=== PATIENT | male | born 1980 | race African-American/Black ===

== ENCOUNTER 2016-04-25 14:12 | Inpatient (IN) | payer BC ==
[2016-04-25] MEDS ORDERED: SODIUM CHLORIDE 1,000 ML IV STA (15:01)
[2016-04-25] MEDS ORDERED: ACETAMINOPHEN 325 MG TABLET (FP) PO ONE (15:04)
[2016-04-25] MEDS ORDERED: PIPERACILLIN/TAZOBACTAM 4.5 GM VIAL IVPB ONE ×2 (15:07→15:25)
[2016-04-25] MEDS ORDERED: VANCOMYCIN 1,500 MG in DEXTROSE 5%-WATER - 250 ML IVPB ONE (15:07)
[2016-04-25] MEDS ORDERED: ACETAMINOPHEN 325 MG TABLET (FP) ONE (15:25)
[2016-04-25 15:53] LABS: BASOPHIL 1.8 % (0-2.0); EOSINOPHIL 0.2 % (0-4.5); MCH 27.9 pg (25.7-33.7); MCHC 33.3 g/dl (32.0-35.9); MEAN CELL VOLUME 83.6 fl (80-96); MEAN PLT VOLUME 8.1 fl (7.5-11.1); PLATELET COUNT 395 K/MM3 (134-434); RDW 14.1 % (11.9-15.9); WHITE BLOOD COUNT 18.5 K/mm3 (4.0-10.0)
[2016-04-25] MEDS ORDERED: VANCOMYCIN 500 MG VIAL (RESTRICTED TO ID ONLY) ONE (15:58)
[2016-04-25] MEDS ORDERED: VANCOMYCIN 1,000 MG VIAL (RESTRICTED TO ID ONLY) ONE (15:58)
[2016-04-25 16:02] LABS: ACTIVATED PTT 35.3 SECONDS (24.0-38.9)
[2016-04-25 16:04] LABS: ALBUMIN 3.9 g/dl (3.5-5.0); ALK PHOS 76 U/L (32-92); ANION GAP 9 (8-16); BILIRUBIN,TOTAL 0.7 mg/dl (0.2-1.0); CO2 23 mmol/L (22-28); CREATININE 1.1 mg/dl (0.6-1.3); GLUCOSE,RANDOM 91 mg/dl (74-106); SGOT/AST 20 U/L (10-42); SGPT/ALT 25 U/L (10-40); TOT PROT 7.6 g/dl (6.4-8.3)
[2016-04-25 16:07] LABS: INR 1.3 (0.82-1.09); PROTHROMBIN TIME (PATIENT) 14.5 SEC (10.2-13.0)
--- NOTE | 2016-04-25 16:15 | PDOC ---
History of Present Illness - General History Source: Patient Exam Limitations: No Limitations - History of Present Illness Initial Comments: 04/25/16 16:15 The patient is a 35 year old male, with significant past medical history of multiple episodes of cellulitis (most recently in 2011) and obesity, who presents today complaining of 1 day of right groin pain, subjective fever, SOB, and 3 days of runny nose and a dry throat. The patient states that the groin and leg pain started this morning. The pain radiates from the groin, down the RLE, to the right lower ankle. The pain is exacerbated upon movement, touch/ pressure and is alleviated secondary to laying down. He states that this pain is similar to the symptoms experienced with cellulitis in the past. The patient states that he became short of breath this morning while sitting down. He reports a subjective fever and chills also starting this morning. He notes a runny nose and dry throat over the past couple of days and has taken nyquil for these symptoms. No cough. No abdominal pain, nausea, vomiting. Denies recent strenuous activity or recent trauma. Allergies: none reported Social Hx: No tobacco use. PCP- Dr. Jenise Squires ([phone]) 04/25/16 16:21 <Zohra Rodriguez - Last Filed: 04/25/16 17:28> <Jerry Humphrey - Last Filed: 04/25/16 17:43> - General Chief Complaint: Pain, Acute Stated Complaint: RIGHT LEG PAIN Time Seen by Provider: 04/25/16 14:22 Past History <Zohra Rodriguez - Last Filed: 04/25/16 17:28> - Past Medical History Other medical history: DENIES - Psycho/Social/Smoking Cessation Hx Anxiety: No Suicidal Ideation: No Smoking Status: No Smoking History: Never smoked Years of Tobacco Use: 0 Number of Cigarettes Smoked Daily: 0 Hx Alcohol Use: No Drug/Substance Use Hx: No Substance Use Type: None Hx Substance Use Treatment: No <Jerry Humphrey - Last Filed: 04/25/16 17:43> - Past Medical History Allergies/Adverse Reactions: Allergies Allergy/AdvReac Type Severity Reaction Status Date / Time No Known Allergies Allergy Verified 04/25/16 14:14 Home Medications: Ambulatory Orders NK [No Known Home Medication] 04/25/16 Review of Systems - Review of Systems Comments:: 04/25/16 16:15 CONSTITUTIONAL: Present: subjective fever, chills Absent: Diaphoresis, Generalized Weakness, Malaise, Loss of Appetite HEENT: Present: Rhinorrhea, dry throat. Absent: Nasal Congestion, Throat Swelling, Difficulty Swallowing, Mouth Swelling , Ear Pain, Eye Pain, Visual Changes CARDIOVASCULAR: Absent: Chest Pain, Syncope, Palpitations, Irregular Heart Rate, Lightheadedness , Peripheral Edema RESPIRATORY: Present: Shortness of breath Absent: Cough, SOB with Exertion, Orthopnea, Wheezing, Stridor, Hemoptysis GASTROINTESTINAL: Absent: Abdominal pain, Abdominal Distension, Nausea, Vomiting, Diarrhea, Constipation, Melena, Hematochezia GENITOURINARY: Absent: Dysuria, Frequency, Urgency, Hesitancy, Flank Pain, Genital Pain MUSCULOSKELETAL: Present: right groin pain radiating down the right leg to the right ankle. Absent: Myalgia, Arthralgia, Joint Swelling, Back pain, Neck Pain SKIN: Absent: Rash, Itching, Pallor <Zohra Rodriguez - Last Filed: 04/25/16 17:28> *Physical Exam - Vital Signs Last Vital Signs Temp Pulse Resp BP Pulse Ox 103 F H 141 H 24 131/76 98 04/25/16 14:13 04/25/16 14:13 04/25/16 14:13 04/25/16 14:13 04/25/16 14:13 - Physical Exam Comments: 04/25/16 16:17 GENERAL: The patient is awake, alert, and fully oriented, in no acute distress. +He appears tachypneic. +Patient is morbidly obese and states he weighs 425lbs. HEAD: Normal with no signs of trauma. EYES: Pupils equal, round and reactive to light, extraocular movements intact, sclera anicteric, conjunctiva clear. ENT: Ears normal, nares patent, oropharynx clear without exudates. Moist mucous membranes. NECK: Normal range of motion, supple without lymphadenopathy, JVD, or masses. LUNGS: Breath sounds equal, clear to auscultation bilaterally. No wheezes, and no crackles. HEART: +tachycardic. Regular rhythm, normal S1 and S2 without murmur, rub or gallop. ABDOMEN: +Obese. Soft, nontender, normoactive bowel sounds. No guarding, no rebound. No masses. EXTREMITIES: +Right hip and knee with normal ROM with no pain. Right medial lower leg with increased warmth, increased redness, and tenderness to palpation.Pulses normal. Remainder of the extremities normal. NEUROLOGICAL: Cranial nerves II through XII grossly intact. Normal speech, normal gait. PSYCH: Normal mood, normal affect. SKIN: +erythematous right medial ankle and right leg with increased warmth to that area. Warm, Dry, normal turgor, no rashes or lesions noted. <Zohra Rodriguez - Last Filed: 04/25/16 17:28> - Vital Signs Last Vital Signs Temp Pulse Resp BP Pulse Ox 103 F H 141 H 24 131/76 98 04/25/16 14:13 04/25/16 14:13 04/25/16 14:13 04/25/16 14:13 04/25/16 14:13 <Jeryr Humphrey - Last Filed: 04/25/16 17:43> Heart Score/ECG Review - ECG Intrepretation Comment:: 04/25/16 16:14 12 Lead EKG shows sinus tachycardia at a rate of 114 bpm. The axis is normal. The intervals are normal. There are no acute ST elevations or depressions. Impression: Sinus tachycardia at a rate of 114 bpm. Otherwise normal EKG. <Jerry Humphrey - Last Filed: 04/25/16 17:43> ED Treatment Course - LABORATORY CBC & Chemistry Diagram: 04/25/16 15:16 04/25/16 15:16 - ADDITIONAL ORDERS Additional order review: Laboratory Results 04/25/16 15:16 Sodium 130 L Potassium 3.8 Chloride 98 D Carbon Dioxide 23 Anion Gap 9 BUN 12 D Creatinine 1.1 D Creat Clearance w eGFR > 60 Random Glucose 91 Calcium 9.0 Total Bilirubin 0.7 D AST 20 D ALT 25 Alkaline Phosphatase 76 D Total Protein 7.6 D Albumin 3.9 D - RADIOLOGY Radiograph Interpretation: 04/25/16 16:58 Chest X-ray As reported by Dr. Steve Bullard. Impression: Since 07/28/2012 there are prominent soft tissues with slight increase in central markings, but no sign of infiltrate or failure. The mediastinum is not widened. Correlation recommended. If symptoms persist, futher imaging may be of help. 04/25/16 17:30 EXAM#: TYPE/EXAM: RESULT: [id number] US/DUPLEX VASCUL US-1 LEG Right lower extremity venous ultrasound. Clinical information given: right leg pain, evaluate for DVT The exam was performed utilizing compression, grayscale, color flow and doppler sonography. There is no sonographic evidence of deep vein thrombosis. If there is clinical concern for possible isolated deep calf vein thrombosis or if there is a clinical diagnosis of uncomplicated superficial thrombophlebitis, then correlation with follow up sonography is suggested in approximately 3-7 days.. There is no obvious popliteal cyst. Impression: No DVT is identified involving the right leg. Please see above. Reported By: Jacinto Vizcarra MD 04/25/16 9162 - Medications Given in the ED: ED Medications Discontinued Medications Generic Name Dose Route Start Last Admin Trade Name Freq PRN Reason Stop Dose Admin Acetaminophen 975 mg 04/25/16 15:04 04/25/16 15:36 Tylenol - PO 04/25/16 15:05 975 mg ONCE ONE Administration Sodium Chloride 1,000 mls @ 1,000 mls/hr 04/25/16 15:01 04/25/16 15:36 Normal Saline - IV 04/25/16 16:00 1,000 mls/hr ASDIR STA Administration Vancomycin HCl 1,500 mg/ 250 mls @ 250 mls/hr 04/25/16 15:07 04/25/16 16:06 Dextrose IVPB 04/25/16 16:06 250 mls/hr ONCE ONE Administration Piperacillin Sod/Tazobactam Sod 4.5 gm 04/25/16 15:07 04/25/16 15:25 Zosyn - IVPB 04/25/16 15:08 4.5 gm ONCE ONE Administration <Zohra Rodriguez - Last Filed: 04/25/16 17:28> - LABORATORY CBC & Chemistry Diagram: 04/25/16 15:16 04/25/16 15:16 - ADDITIONAL ORDERS Additional order review: Laboratory Results 04/25/16 15:16 Sodium 130 L Potassium 3.8 Chloride 98 D Carbon Dioxide 23 Anion Gap 9 BUN 12 D Creatinine 1.1 D Creat Clearance w eGFR > 60 Random Glucose 91 Calcium 9.0 Total Bilirubin 0.7 D AST 20 D ALT 25 Alkaline Phosphatase 76 D Total Protein 7.6 D Albumin 3.9 D - RADIOLOGY Radiology Studies Ordered: Category Date Time Status CHEST X-RAY PORTABLE* [RAD] Stat Radiology 04/25/16 15:02 Taken DUPLEX VASCUL US-1 LEG [US] Stat Ultrasound 04/25/16 16:10 Ordered - Medications Given in the ED: ED Medications Discontinued Medications Generic Name Dose Route Start Last Admin Trade Name David PRN Reason Stop Dose Admin Acetaminophen 975 mg 04/25/16 15:04 04/25/16 15:36 Tylenol - PO 04/25/16 15:05 975 mg ONCE ONE Administration Sodium Chloride 1,000 mls @ 1,000 mls/hr 04/25/16 15:01 04/25/16 15:36 Normal Saline - IV 04/25/16 16:00 1,000 mls/hr ASDIR STA Administration Vancomycin HCl 1,500 mg/ 250 mls @ 250 mls/hr 04/25/16 15:07 04/25/16 16:06 Dextrose IVPB 04/25/16 16:06 250 mls/hr ONCE ONE Administration Piperacillin Sod/Tazobactam Sod 4.5 gm 04/25/16 15:07 04/25/16 15:25 Zosyn - IVPB 04/25/16 15:08 4.5 gm ONCE ONE Administration <Jerry Humphrey - Last Filed: 04/25/16 17:43> Medical Decision Making - Critical Care Time Total Critical Care Time (minutes): 55 (r/o severe sepsis) Critical Care Statement: The care of this patient involved high complexity decision making to prevent further life threatening deterioration of the patient 's condition and/or to evalute & treat vital organ system(s) failure or risk of failure. - Medical Decision Making 04/25/16 17:30 35-year-old man with a history of multiple episodes of recurrent cellulitis requiring hospitalization on multiple prior episodes. Patient presents complaining of fever, chills, and right leg pain consistent with prior episodes of cellulitis. He states he has tenderness and redness to the right medial lower leg. He denies cough or dysuria. On examination, the patient has a fever to 103 and tachycardia to 140. His head and neck exam is without signs of upper respiratory infection. Lungs are clear. Abdomen is benign. Extremities are notable for the right lower leg being warmer than the left with redness and tenderness to the right medial lower leg. Pulses are normal. There is no muscle tenderness or induration. Laboratory studies reviewed. White blood cell count is markedly elevated with increased neutrophils. Chest x-ray is clear. Lactate is normal. Renal function is normal. There was an initial concern for severe sepsis, however there are no signs of severe sepsis by laboratory criteria. VBG shows respiratory alkalosis. D-dimer screening test is negative for DVT. Ultrasound of the right lower extremity is negative for DVT. Patient complained of some dyspnea, but with that was in the setting of fever that resolved with Tylenol. Pulse oximetry on room air despite severe obesity has been 97-100%. Impression: Right lower extremity cellulitis, recurrent, with high fever and markedly elevated white blood cell count. Patient will be treated with IV antibiotics pending clinical improvement. The scribe's documentation has been prepared under my direction and personally reviewed by me in its entirety. I have confirmed that the note above accurately reflects all work, treatment, procedures, and medical decision- making performed by me. 04/25/16 17:42 Discussed with hospitalist and they will admit. <Jerry Humphrey - Last Filed: 04/25/16 17:43> *DC/Admit/Observation/Transfer - Attestations Scribe Attestion: 04/25/16 16:18 Documentation prepared by CAM Cantrell, acting as medical diagnostic radiographer for Jerry Humphrey MD. <Zohra Rodriguez - Last Filed: 04/25/16 17:28> - Discharge Dispostion Admit: Yes Decision to Admit order Date/Time: 04/25/16 17:35 Right lower extremity cellulitis, hospitalist texted. <Jerry Humphrey - Last Filed: 04/25/16 17:43> Diagnosis at time of Disposition: Cellulitis of right lower extremity - Discharge Dispostion Condition at time of disposition: Stable
[2016-04-25 16:29] LABS: CPK(DFH) 195 IU/L (38-174)
[2016-04-25 16:43] LABS: VENOUS PH 7.5 (7.35-7.45)
[2016-04-25 16:50] LABS: PH,URINE 7.5 (4.5-8); URINE APPEARANCE Clear; URINE BILIRUBIN Negative (NEGATIVE); URINE BLOOD Trace-lysed (NEGATIVE); URINE COLOR YELLOW; URINE GLUCOSE (UA) Negative (NEGATIVE); URINE KETONE Negative (NEGATIVE); URINE LEUK ESTERASE Negative (NEGATIVE); URINE NITRITE Negative (NEGATIVE); URINE PROTEIN Negative (NEGATIVE); URINE UROBILINOGEN 0.2 E.U/dl (0.2-1.0)
[2016-04-25 16:59] LABS: TROPONIN I (DFP) < 0.03 ng/ml (0.03-0.50)
[2016-04-25 17:01] LABS: CK MB 0.7 ng/ml (0.3-4.0)
[2016-04-25] MEDS ORDERED: IBUPROFEN 600 MG TABLET (FP) PO ONE ×2 (17:12→17:13)
[2016-04-25] MEDS ORDERED: SODIUM CHLORIDE 0.9% 1000 ML INFUS.BAG IV ONE (17:12)
--- NOTE | 2016-04-25 20:16 | HP ---
CHIEF COMPLAINT: Right Groin, R Lower Extremity Pain PCP: Not on Staff HISTORY OF PRESENT ILLNESS: This is a 35 y/o male with a past medical history of recurrent lower extremity cellulitis ( last event 2011), Morbid Obesity. Who presents to the emergency department with pain to right groin radiating to RLE. Patient also reports increased swelling and redness to right medial ankle x this am. Patient reports increase pain with movement. Patient reports having subjective fever at home with a runny nose and throat irritation. Patient denies SOB, CP, AP, N/V/D, constipation, diarrhea, dysuria. ER course was notable for: (1) Sepsis: T 103, P 141, WBC 18.5 with L shift (2) Duplex Right lower extremity- No DVT (3) Vancomycin, Zosyn given in ED Recent Travel: None PAST MEDICAL HISTORY: See HPI PAST SURGICAL HISTORY: Denies Social History: Smoking: Denies Alcohol: Denies Drugs: Denies Lives with spouse Family History: Diabetes: Mother, Father HTN: Mother, Father Allergies No Known Allergies Allergy (Verified 04/25/16 14:14) HOME MEDICATIONS: Home Medications Medication Instructions Recorded NK [No Known Home Medication] 04/25/16 REVIEW OF SYSTEMS CONSTITUTIONAL: fever Absent: chills, diaphoresis, generalized weakness, malaise, loss of appetite, weight change HEENT: rhinorrhea, dry throat Absent: nasal congestion, throat pain, throat swelling, difficulty swallowing, mouth swelling, ear pain, eye pain, visual changes CARDIOVASCULAR: Absent: chest pain, syncope, palpitations, irregular heart rate, lightheadedness , peripheral edema RESPIRATORY: Absent: cough, shortness of breath, dyspnea with exertion, orthopnea, wheezing, stridor, hemoptysis GASTROINTESTINAL: Absent: abdominal pain, abdominal distension, nausea, vomiting, diarrhea, constipation, melena, hematochezia GENITOURINARY: right groin pain Absent: dysuria, frequency, urgency, hesitancy, hematuria, flank pain, genital pain MUSCULOSKELETAL: right leg pain Absent: myalgia, arthralgia, joint swelling, back pain, neck pain SKIN: Absent: rash, itching, pallor HEMATOLOGIC/IMMUNOLOGIC: Absent: easy bleeding, easy bruising, lymphadenopathy, frequent infections ENDOCRINE: Absent: unexplained weight gain, unexplained weight loss, heat intolerance, cold intolerance NEUROLOGIC: Absent: headache, focal weakness or paresthesias, dizziness, unsteady gait, seizure, mental status changes, bladder or bowel incontinence PSYCHIATRIC: Absent: anxiety, depression, suicidal or homicidal ideation, hallucinations. PHYSICAL EXAMINATION Vital Signs - 24 hr 04/25/16 04/25/16 04/25/16 14:13 16:38 17:28 Temperature 103 F H 102.9 F H Pulse Rate 141 H Pulse Rate [ 117 H 117 H Apical] Respiratory 24 22 24 Rate Blood Pressure 131/76 Blood Pressure 102/58 101/71 [Right] O2 Sat by Pulse 98 97 98 Oximetry (%) 04/25/16 18:27 Temperature 100.9 F H Pulse Rate Pulse Rate [ 114 H Apical] Respiratory 24 Rate Blood Pressure Blood Pressure 100/56 [Right] O2 Sat by Pulse 98 Oximetry (%) GENERAL: Morbidly Obese, Awake, alert, and fully oriented, in no acute distress. HEAD: Normal with no signs of trauma. EYES: Pupils equal, round and reactive to light, extraocular movements intact, sclera anicteric, conjunctiva clear. No lid lag. EARS, NOSE, THROAT: Ears normal, nares patent, oropharynx clear without exudates. Moist mucous membranes. NECK: Normal range of motion, supple without lymphadenopathy, JVD, or masses. LUNGS: Breath sounds equal, clear to auscultation bilaterally. No wheezes, and no crackles. No accessory muscle use. HEART: Regular rate and rhythm, normal S1 and S2 without murmur, rub or gallop. ABDOMEN: Soft, Obese, nontender, not distended, normoactive bowel sounds, no guarding, no rebound, no masses. No hepatomegaly or splenomegaly. MUSCULOSKELETAL: Normal range of motion at all joints. No bony deformities or tenderness. No CVA tenderness. UPPER EXTREMITIES: 2+ pulses, warm, well-perfused. No cyanosis. No clubbing. Cap refill <2 seconds. No peripheral edema. LOWER EXTREMITIES: 2+ pulses, warm, well-perfused. No calf tenderness. +1 RLE peripheral edema. NEUROLOGICAL: Cranial nerves II-XII intact. Normal speech. Normal gait. PSYCHIATRIC: Cooperative. Good eye contact. Appropriate mood and affect. SKIN: +Erythema to medial ankle, Warm, dry, normal turgor, no rashes or lesions noted. Laboratory Results - last 24 hr 04/25/16 04/25/16 04/25/16 15:07 15:07 15:07 WBC RBC Hgb Hct MCV MCHC RDW Plt Count MPV Neutrophils % Lymphocytes % Monocytes % Eosinophils % Basophils % ESR INR PTT (Actin FS) D-Dimer VBG pH POC VBG pCO2 POC VBG pO2 Mixed VBG HCO3 Sodium Potassium Chloride Carbon Dioxide Anion Gap BUN Creatinine Creat Clearance w eGFR Random Glucose Lactic Acid 1.830 Calcium Total Bilirubin AST ALT Alkaline Phosphatase Creatine Kinase 195 H CK-MB (CK-2) 0.7 CK-MB (CK-2) Rel Index 0.4 Troponin I < 0.03 L C-Reactive Protein Total Protein Albumin Urine Color Urine Appearance Urine pH Ur Specific [place] Urine Protein Urine Glucose (UA) Urine Ketones Urine Blood Urine Nitrite Urine Bilirubin Urine Urobilinogen Ur Leukocyte Esterase Blood Type O POSITIVE Antibody Screen Negative 04/25/16 04/25/16 04/25/16 15:07 15:07 15:07 WBC RBC Hgb Hct MCV MCHC RDW Plt Count MPV Neutrophils % Lymphocytes % Monocytes % Eosinophils % Basophils % ESR 35 H INR PTT (Actin FS) D-Dimer < 200 VBG pH POC VBG pCO2 POC VBG pO2 Mixed VBG HCO3 Sodium Potassium Chloride Carbon Dioxide Anion Gap BUN Creatinine Creat Clearance w eGFR Random Glucose Lactic Acid Calcium Total Bilirubin AST ALT Alkaline Phosphatase Creatine Kinase CK-MB (CK-2) CK-MB (CK-2) Rel Index Troponin I C-Reactive Protein 5.3 H Total Protein Albumin Urine Color Urine Appearance Urine pH Ur Specific [place] Urine Protein Urine Glucose (UA) Urine Ketones Urine Blood Urine Nitrite Urine Bilirubin Urine Urobilinogen Ur Leukocyte Esterase Blood Type Antibody Screen 04/25/16 04/25/16 04/25/16 15:07 15:07 15:16 WBC 18.5 H D RBC 5.14 Hgb 14.3 Hct 42.9 MCV 83.6 MCHC 33.3 RDW 14.1 Plt Count 395 MPV 8.1 Neutrophils % 89.0 H Lymphocytes % 6.0 L D Monocytes % 3.0 L Eosinophils % 0.2 Basophils % 1.8 D ESR INR PTT (Actin FS) D-Dimer VBG pH POC VBG pCO2 POC VBG pO2 Mixed VBG HCO3 Sodium Potassium Chloride Carbon Dioxide Anion Gap BUN Creatinine Creat Clearance w eGFR Random Glucose Lactic Acid Calcium Total Bilirubin AST ALT Alkaline Phosphatase Creatine Kinase CK-MB (CK-2) Cancelled CK-MB (CK-2) Rel Index Troponin I C-Reactive Protein Total Protein Albumin Urine Color Urine Appearance Urine pH Ur Specific [place] Urine Protein Urine Glucose (UA) Urine Ketones Urine Blood Urine Nitrite Urine Bilirubin Urine Urobilinogen Ur Leukocyte Esterase Blood Type O POSITIVE Antibody Screen 04/25/16 04/25/16 04/25/16 15:16 15:16 16:10 WBC RBC Hgb Hct MCV MCHC RDW Plt Count MPV Neutrophils % Lymphocytes % Monocytes % Eosinophils % Basophils % ESR INR 1.30 H PTT (Actin FS) 35.3 D-Dimer VBG pH 7.50 H POC VBG pCO2 31.0 L POC VBG pO2 23.5 L* Mixed VBG HCO3 24.0 Sodium 130 L Potassium 3.8 Chloride 98 D Carbon Dioxide 23 Anion Gap 9 BUN 12 D Creatinine 1.1 D Creat Clearance w eGFR > 60 Random Glucose 91 Lactic Acid Calcium 9.0 Total Bilirubin 0.7 D AST 20 D ALT 25 Alkaline Phosphatase 76 D Creatine Kinase CK-MB (CK-2) CK-MB (CK-2) Rel Index Troponin I C-Reactive Protein Total Protein 7.6 D Albumin 3.9 D Urine Color Urine Appearance Urine pH Ur Specific [place] Urine Protein Urine Glucose (UA) Urine Ketones Urine Blood Urine Nitrite Urine Bilirubin Urine Urobilinogen Ur Leukocyte Esterase Blood Type Antibody Screen 04/25/16 16:24 WBC RBC Hgb Hct MCV MCHC RDW Plt Count MPV Neutrophils % Lymphocytes % Monocytes % Eosinophils % Basophils % ESR INR PTT (Actin FS) D-Dimer VBG pH POC VBG pCO2 POC VBG pO2 Mixed VBG HCO3 Sodium Potassium Chloride Carbon Dioxide Anion Gap BUN Creatinine Creat Clearance w eGFR Random Glucose Lactic Acid Calcium Total Bilirubin AST ALT Alkaline Phosphatase Creatine Kinase CK-MB (CK-2) CK-MB (CK-2) Rel Index Troponin I C-Reactive Protein Total Protein Albumin Urine Color Yellow Urine Appearance Clear Urine pH 7.5 Ur Specific [place] 1.020 Urine Protein Negative Urine Glucose (UA) Negative Urine Ketones Negative Urine Blood Trace-lysed Urine Nitrite Negative Urine Bilirubin Negative Urine Urobilinogen 0.2 e.u/dl Ur Leukocyte Esterase Negative Blood Type Antibody Screen ASSESSMENT/PLAN: This is a 35 y/o male with a PMHx of recurrent RLE cellulitis, Morbid Obesity. Presents to the ED with R-Groin Pain, RLE pain and swelling. Admitted for Sepsis secondary to Cellulitis of Right Lower Extremity for further evaluation of their emergent condition. Plan: 1. Sepsis - Likely secondary to RLE Cellulitis - Blood Cultures-pending - Given Vancomcyin/Zosyn - Will continue Vancomycin for MRSA coverage - Appreciate ID Consult - Monitor temp - Monitor CBCD - Continue IVF 2. Cellulitis of Right Lower Extremity - Continue Vancomycin - Appreciate ID Consult - Doppler of RLE- Neg DVT 3. Morbid Obesity - Carb Control Diet - f/u with Bariatrics in outpatient setting 4. FEN - NS@100cc/hr - Replete lytes - Carb Control Diet 5. DVT Prophylaxis - OOB - Heparin SQ Code Status: Full Code Problem List - Problem (1) Sepsis Code(s): A41.9 - SEPSIS, UNSPECIFIED ORGANISM (2) Cellulitis of right lower extremity Code(s): L03.115 - CELLULITIS OF RIGHT LOWER LIMB (3) Morbid (severe) obesity due to excess calories Code(s): E66.01 - MORBID (SEVERE) OBESITY DUE TO EXCESS CALORIES (4) DVT prophylaxis Code(s): BYO6372 - Visit type - Emergency Visit Emergency Visit: Yes ED Registration Date: 04/25/16 Care time: The patient presented to the Emergency Department on the above date and was hospitalized for further evaluation of their emergent condition. - New Patient This patient is new to me today: Yes Date on this admission: 04/25/16 - Critical Care Critical Care patient: No
[2016-04-25 20:37] VITALS: BMI 56.2
[2016-04-25] MEDS: SODIUM CHLORIDE 1,000 ML IV SCH (21:00)
[2016-04-25] MEDS: HEPARIN NA (PORCINE) 5,000 UNITS/ML 1ML VIAL SQ SCH (21:24)
[2016-04-26] MEDS: ACETAMINOPHEN 325 MG TABLET (FP) PO PRN ×3 (05:26→22:30)
[2016-04-26] MEDS: HEPARIN NA (PORCINE) 5,000 UNITS/ML 1ML VIAL SQ SCH ×3 (05:27→22:11)
[2016-04-26 08:07] LABS: BASOPHIL 0.2 % (0-2.0); MCH 27.8 pg (25.7-33.7); MCHC 33.4 g/dl (32.0-35.9); MEAN CELL VOLUME 83.4 fl (80-96); MEAN PLT VOLUME 7.7 fl (7.5-11.1); NEUTROPHILS 86.6 % (42.8-82.8); PLATELET COUNT 351 K/MM3 (134-434); RDW 14.2 % (11.9-15.9); WHITE BLOOD COUNT 13.9 K/mm3 (4.0-10.0)
[2016-04-26 08:20] LABS: CALCIUM 8.4 mg/dl (8.4-10.2); CREATININE 1.1 mg/dl (0.6-1.3)
--- NOTE | 2016-04-26 08:26 | PN ---
Physical Exam: SUBJECTIVE: Patient seen and examined. Appears tachypneic but states that he is not short of breath. Complaining of right leg pain, not controlled with Tylenol. OBJECTIVE: Hospital day #1 for this 35 year old male with morbid obesity admitted with sepsis likely secondary to recurrent cellulitis. Vital Signs Period Temp Pulse Resp BP Sys/Post Pulse Ox Last 24 Hr 99.7 F-102.5 F 107-123 18-20 111-114/56-67 98-99 GENERAL: The patient is awake, alert, and fully oriented, in no acute distress. HEAD: Normal with no signs of trauma. EYES: PERRL, extraocular movements intact, sclera anicteric, conjunctiva clear. No ptosis. ENT: Ears normal, nares patent, oropharynx clear without exudates, moist mucous membranes. NECK: Trachea midline, full range of motion, supple. LUNGS: Breath sounds equal, clear to auscultation bilaterally, no wheezes, no crackles, no accessory muscle use. HEART: Regular rate and rhythm, S1, S2 without murmur, rub or gallop. ABDOMEN: Soft, nontender, nondistended, normoactive bowel sounds, no guarding, no rebound, no hepatosplenomegaly, no masses. EXTREMITIES: 2+ pulses, warm, well-perfused, no edema. NEUROLOGICAL: Cranial nerves II through XII grossly intact. Normal speech, gait not observed. PSYCH: Normal mood, normal affect. SKIN: Erythema and warmth right ankle to mid-calf. Laboratory Results - last 24 hr 04/26/16 07:32 WBC 13.9 H RBC 4.91 Hgb 13.6 Hct 40.9 MCV 83.4 MCHC 33.4 RDW 14.2 Plt Count 351 MPV 7.7 Neutrophils % 86.6 H Lymphocytes % 8.2 D Monocytes % 5.0 Eosinophils % 0.0 D Basophils % 0.2 Active Medications Generic Name Dose Route Start Last Admin Trade Name Freq PRN Reason Stop Dose Admin Acetaminophen 650 mg 04/25/16 19:55 04/26/16 05:26 Tylenol - PO 650 mg Q6H PRN Administration FEVER OR PAIN Heparin Sodium (Porcine) 5,000 unit 04/25/16 22:00 04/26/16 05:27 Heparin - SQ 5,000 unit TID MC Administration Sodium Chloride 1,000 mls @ 100 mls/hr 04/25/16 20:15 04/25/16 21:00 Normal Saline - IV 100 mls/hr ASDIR MC Administration Ampicillin Sodium/Sulbactam 100 mls @ 200 mls/hr 04/26/16 10:00 Sodium 3 gm/ Sodium Chloride IVPB Q8H-IV MC Vancomycin HCl 1,500 mg/ 250 mls @ 166.667 mls/hr 04/26/16 10:00 Dextrose IVPB Q12H MC ASSESSMENT/PLAN: 35 year old male with sepsis secondary to RLE cellulitis. 1. ID: Sepsis likely secondary to RLE cellulitis -Given Vancomycin 1.5g and Zosyn 4.5g in ED -Continue Vancomycin 1.5g bid and Unasyn 3g q6h pending ID approval -Follow up blood cultures -INR is mildly prolonged at 1.3; repeat tomorrow -Continue IVF -RLE Duplex is negative for DVT, d-dimer is within normal limits 2. Morbid Obesity -Dietary counseling 4. FEN -NS@100 mLs/hr -Replete electrolytes as indicated 5. DVT Prophylaxis - OOB - Heparin SQ Code Status: Full Code Visit type - Emergency Visit Emergency Visit: Yes ED Registration Date: 04/25/16 Care time: The patient presented to the Emergency Department on the above date and was hospitalized for further evaluation of their emergent condition. - New Patient This patient is new to me today: Yes Date on this admission: 04/26/16 - Critical Care Critical Care patient: No
[2016-04-26] MEDS ORDERED: oxyCODONE HCL 5 MG TABLET PO PRN (08:44)
[2016-04-26] MEDS: oxyCODONE HCL 5 MG TABLET PO PRN ×2 (08:57→22:30)
--- NOTE | 2016-04-26 09:17 | PN ---
Progress Note (short form) - Note Progress Note: ID Consult dictated Recurrent cellulitis R LE Possible sepsis secondary to cellulitis Morbid obesity Pending c/s empiric vanco/ unasyn
[2016-04-26] MEDS ORDERED: REFRIGERATED ANITBIOTICS ONE ×2 (09:30→21:17)
[2016-04-26] MEDS: VANCOMYCIN 1,500 MG in DEXTROSE 5%-WATER - 250 ML IVPB SCH ×2 (09:38→22:11)
[2016-04-26] MEDS ORDERED: VANCOMYCIN 1,250 MG in DEXTROSE 5%-WATER - 250 ML IVPB SCH (10:00)
[2016-04-26] MEDS ORDERED: VANCOMYCIN 1,500 MG in DEXTROSE 5%-WATER - 250 ML IVPB SCH (10:00)
[2016-04-26] MEDS ORDERED: AMPICILLIN NA/SULBACTAM NA 3 GM in SODIUM CHLORIDE 100 ML IVPB SCH (10:00)
[2016-04-26] MEDS ORDERED: PT OWN MED DRAWER 7, Y5N ONE (14:04)
[2016-04-26] MEDS: AMPICILLIN NA/SULBACTAM NA 3 GM in SODIUM CHLORIDE 100 ML IVPB SCH ×2 (14:27→20:24)
[2016-04-26] MEDS: SODIUM CHLORIDE 1,000 ML IV SCH (20:20)
--- NOTE | 2016-04-26 21:32 | CONS ---
DATE OF CONSULTATION: HISTORY: The patient is a 35-year-old morbidly obese male who was evaluated for recurrent cellulitis of the right lower extremity. The patient was admitted with a 1-day history of right groin pain and right lower extremity erythema and warmth. The patient developed abrupt onset of right groin pain followed by increasing tenderness, erythema, and warmth of the right lower extremity. He also had subjective fever and shortness of breath. He presented to the emergency room at [facility]. His temperature was noted to be 103 and white blood cell count 18,000. A Doppler exam was performed of the leg and was negative for DVT. He denies any traumatic injury. No insect or animal bites or scratches. He has had a history of recurrent right lower extremity cellulitis dating back to 1998. I have seen him on at least 2 occasions. He was last here in July 2012 for recurrent right lower extremity cellulitis. In 2009 his recurrent right lower extremity cellulitis was complicated by group B streptococcus bacteremia. He had previous episodes in 2001 and in 1998. PAST MEDICAL HISTORY: Also positive for morbid obesity, bronchial asthma, eczema. ALLERGIES: No known allergies. MEDICATIONS: Tylenol, vancomycin, Unasyn, heparin, oxycodone. SOCIAL HISTORY: He lives at home with his significant other. Nonsmoker. Nondrinker. SYSTEMS REVIEW: Neurologic: No loss of consciousness, seizure activity, focal weakness. Cardiac: Negative for chest pain or palpitations. Respiratory: Negative for cough or sputum production. Gastrointestinal: Negative vomiting or diarrhea. Genitourinary: Negative for urinary tract infection. LABORATORY DATA: White count on admission 18.5, presently 13.9, hematocrit 40.9, platelet count 351. BUN 9, creatinine 1.1. Urine: Leukocyte esterase negative. Cultures pending. PHYSICAL EXAMINATION: General: He is morbidly obese. He is not acutely toxic appearing. Vital Signs: Temperature 102.5, blood pressure 114/67, pulse 123, regular, respirations 20 per minute. HEENT: Sclerae anicteric. Heart: Sounds S1, S2. Lungs: Clear. Abdomen: Obese, soft, nontender. There is tenderness present in the right inguinal ligament area with a palpable right inguinal adenopathy. Extremities: Right lower extremity, there is erythema and warmth present from the distal right lower extremity from below the knee to the foot. It is tender to touch. There is no crepitus or fluctuance. No lymphangitic streaking. IMPRESSION: 1. Recurrent right lower extremity cellulitis. 2. Fever, leukocytosis, possible sepsis secondary to cellulitis. 3. Morbid obesity. PLAN: Await culture results. Empiric antibiotic coverage with vancomycin 1500 mg IV piggyback every 12 hours, Unasyn 3 g IV piggyback every 6 hours. Elevation. Analgesics. Further recommendations pending cultures. We will follow. Thank you for the kind referral. CAMERON BOOTHE M.D. [id number]
[2016-04-27] MEDS: AMPICILLIN NA/SULBACTAM NA 3 GM in SODIUM CHLORIDE 100 ML IVPB SCH ×4 (02:54→21:17)
[2016-04-27] MEDS: HEPARIN NA (PORCINE) 5,000 UNITS/ML 1ML VIAL SQ SCH ×3 (06:39→21:16)
--- NOTE | 2016-04-27 07:32 | EKG ---
Test Reason : Blood Pressure : / mmHG Vent. Rate : 114 BPM Atrial Rate : 114 BPM P-R Int : 152 ms QRS Dur : 078 ms QT Int : 330 ms P-R-T Axes : 038 011 017 degrees QTc Int : 454 ms SINUS TACHYCARDIA OTHERWISE NORMAL ECG NO PREVIOUS ECGS AVAILABLE Confirmed by PATRICK ABBOTT MD ([id number]) on 04/27/2016 7:31:30 AM Referred By: Cintia Pedraza Confirmed By:PATRICK ABBOTT MD
--- NOTE | 2016-04-27 08:41 | PN ---
[id number] Vital Signs Period Temp Pulse Resp BP Sys/Post Pulse Ox Last 24 Hr 98.8 F-102.9 F 95-113 18-19 116-144/72-83 98-100 GENERAL: The patient is awake, alert, and fully oriented, in no acute distress. EYES: PERRL, extraocular movements intact, sclera anicteric, conjunctiva clear. No ptosis. ENT: Ears normal, nares patent, oropharynx clear without exudates, moist mucous membranes. NECK: Trachea midline, full range of motion, supple. LUNGS: Breath sounds equal, clear to auscultation bilaterally, no wheezes, no crackles, no accessory muscle use. HEART: Regular rate and rhythm, S1, S2 without murmur, rub or gallop. ABDOMEN: Soft, nontender, nondistended, normoactive bowel sounds, no guarding, no rebound, no hepatosplenomegaly, no masses. EXTREMITIES: 2+ pulses, warm, well-perfused, no edema. NEUROLOGICAL: Cranial nerves II through XII grossly intact. Normal speech, gait not observed. PSYCH: Normal mood, normal affect. SKIN: Erythema and warmth right ankle to right mid-calf. No abscess or drainage. Active Medications Generic Name Dose Route Start Last Admin Trade Name Freq PRN Reason Stop Dose Admin Acetaminophen 650 mg 04/25/16 19:55 04/26/16 22:30 Tylenol - PO 650 mg Q6H PRN Administration FEVER OR PAIN Heparin Sodium (Porcine) 5,000 unit 04/25/16 22:00 04/27/16 06:39 Heparin - SQ 5,000 unit TID MC Administration Sodium Chloride 1,000 mls @ 100 mls/hr 04/25/16 20:15 04/26/16 20:20 Normal Saline - IV 100 mls/hr ASDIR MC Administration Vancomycin HCl 1,500 mg/ 250 mls @ 166.667 mls/hr 04/26/16 09:30 04/26/16 22:11 Dextrose IVPB 166.667 mls/hr Q12H MC Administration Ampicillin Sodium/Sulbactam 100 mls @ 200 mls/hr 04/26/16 15:00 04/27/16 02:54 Sodium 3 gm/ Sodium Chloride IVPB 200 mls/hr Q6H-IV MC Administration Oxycodone HCl 5 mg 04/26/16 08:50 04/26/16 22:30 Roxicodone - PO 5 mg Q6H PRN Administration PAIN ASSESSMENT/PLAN: 35 year old male with sepsis secondary to RLE cellulitis. 1. ID: Sepsis likely secondary to RLE cellulitis -Continue Vancomycin 1.5g bid and Unasyn 3g q6h -Check Vanco trough -Follow up blood cultures -INR is mildly prolonged, follow -Continue IVF -RLE Duplex is negative for DVT, d-dimer is within normal limits -Blood cultures ngtd 2. Morbid Obesity -Dietary counseling 4. FEN -NS@100 mLs/hr -Replete electrolytes as indicated 5. DVT Prophylaxis - OOB - Heparin SQ Code Status: Full Code Visit type - Emergency Visit Emergency Visit: Yes ED Registration Date: 04/25/16 Care time: The patient presented to the Emergency Department on the above date and was hospitalized for further evaluation of their emergent condition. - New Patient This patient is new to me today: No - Critical Care Critical Care patient: No
[2016-04-27 09:18] LABS: BASOPHIL 0.3 % (0-2.0); EOSINOPHIL 0.9 % (0-4.5); INR 1.27 (0.82-1.09); MCH 27.5 pg (25.7-33.7); MCHC 32.9 g/dl (32.0-35.9); MEAN CELL VOLUME 83.7 fl (80-96); MEAN PLT VOLUME 8.1 fl (7.5-11.1); NEUTROPHILS 71.6 % (42.8-82.8); PLATELET COUNT 303 K/MM3 (134-434); PROTHROMBIN TIME (PATIENT) 14.1 SEC (10.2-13.0); RDW 14.4 % (11.9-15.9); WHITE BLOOD COUNT 10.4 K/mm3 (4.0-10.0)
[2016-04-27] MEDS ORDERED: PT OWN MED DRAWER 7, Y5N ONE (09:18)
[2016-04-27] MEDS ORDERED: REFRIGERATED ANITBIOTICS ONE ×2 (09:19→21:12)
[2016-04-27 09:20] LABS: CALCIUM 8.1 mg/dl (8.4-10.2)
[2016-04-27] MEDS: VANCOMYCIN 1,500 MG in DEXTROSE 5%-WATER - 250 ML IVPB SCH ×2 (09:38→22:28)
[2016-04-27] MEDS ORDERED: POTASSIUM CHLORIDE TABS 20 MEQ TABLET.ER (FP) PO ONE (09:38)
[2016-04-27] MEDS: oxyCODONE HCL 5 MG TABLET PO PRN (11:39)
[2016-04-27] MEDS: ACETAMINOPHEN 325 MG TABLET (FP) PO PRN (16:01)
[2016-04-27] MEDS: SODIUM CHLORIDE 1,000 ML IV SCH (21:17)
[2016-04-28] MEDS: AMPICILLIN NA/SULBACTAM NA 3 GM in SODIUM CHLORIDE 100 ML IVPB SCH ×2 (03:15→08:48)
[2016-04-28] MEDS: HEPARIN NA (PORCINE) 5,000 UNITS/ML 1ML VIAL SQ SCH ×3 (06:16→21:02)
[2016-04-28] MEDS ORDERED: PT OWN MED DRAWER 7, Y5N ONE (08:35)
[2016-04-28] MEDS ORDERED: REFRIGERATED ANITBIOTICS ONE (08:36)
[2016-04-28 08:48] LABS: BASOPHIL 0.5 % (0-2.0); EOSINOPHIL 2.5 % (0-4.5); MCH 27.1 pg (25.7-33.7); MCHC 32.2 g/dl (32.0-35.9); MEAN CELL VOLUME 84.2 fl (80-96); MEAN PLT VOLUME 7.9 fl (7.5-11.1); NEUTROPHILS 63.7 % (42.8-82.8); PLATELET COUNT 379 K/MM3 (134-434); RDW 14.2 % (11.9-15.9); WHITE BLOOD COUNT 9.5 K/mm3 (4.0-10.0)
--- NOTE | 2016-04-28 08:49 | PN ---
Progress Note, Physician History of Present Illness: Awake, alert Complains of R LE pain with weight bearing or ambulation Temps down- afebrile WBC improved Blood cultures negative Tolerating antibiotics - Current Medication List Current Medications: Active Medications Acetaminophen (Tylenol -) 650 mg PO Q6H PRN PRN Reason: FEVER OR PAIN Last Admin: 04/27/16 16:01 Dose: 650 mg Heparin Sodium (Porcine) (Heparin -) 5,000 unit SQ TID [facility] Last Admin: 04/28/16 06:16 Dose: 5,000 unit Sodium Chloride (Normal Saline -) 1,000 mls @ 100 mls/hr IV ASDIR [facility] Last Admin: 04/27/16 21:17 Dose: 100 mls/hr Vancomycin HCl 1,500 mg/ (Dextrose) 250 mls @ 166.667 mls/hr IVPB Q12H [facility] Last Admin: 04/27/16 22:28 Dose: 166.667 mls/hr Ampicillin Sodium/Sulbactam (Sodium 3 gm/ Sodium Chloride) 100 mls @ 200 mls/ hr IVPB Q6H-IV [facility] Last Admin: 04/28/16 03:15 Dose: 200 mls/hr Oxycodone HCl (Roxicodone -) 5 mg PO Q6H PRN PRN Reason: PAIN Last Admin: 04/27/16 11:39 Dose: 5 mg - Objective Vital Signs: Vital Signs Temperature 98.5 F 04/28/16 03:00 Pulse Rate 86 04/28/16 03:00 Respiratory Rate 17 04/28/16 07:58 Blood Pressure 136/82 04/28/16 03:00 O2 Sat by Pulse Oximetry (%) 98 04/28/16 07:58 Constitutional: Yes: No Distress, Obese Eyes: Yes: Conjunctiva Clear Cardiovascular: Yes: Regular Rate and Rhythm, S1, S2 Respiratory: Yes: CTA Bilaterally Gastrointestinal: Yes: Normal Bowel Sounds, Soft, Abdomen, Obese. No: Tenderness Extremities: Yes: Other (+ area of erythema/ warmth/ tenderness distal R LE no lymphangitis) Labs: INR, PTT INR 1.27 (0.82-1.09) H 04/27/16 07:00 Assessment/Plan Recurrent R LE cellulitis Possible sepsis secondary to cellulitis Morbid obesity Substitute cefazolin 2gm IVPB q6h Elevation, analgesics
[2016-04-28] MEDS ORDERED: CEFAZOLIN 2 GM/D5W 50 ML IVPB SCH (09:00)
[2016-04-28 09:04] LABS: INR 1.12 (0.82-1.09); PROTHROMBIN TIME (PATIENT) 12.5 SEC (10.2-13.0)
[2016-04-28 09:08] LABS: ALK PHOS 69 U/L (32-92); ANION GAP 7 (8-16); BILIRUBIN,TOTAL 0.5 mg/dl (0.2-1.0); CALCIUM 8.3 mg/dl (8.4-10.2); CO2 23 mmol/L (22-28); CREATININE 0.8 mg/dl (0.6-1.3); GLUCOSE,RANDOM 90 mg/dl (74-106); SGOT/AST 18 U/L (10-42); SGPT/ALT 33 U/L (10-40); TOT PROT 6.7 g/dl (6.4-8.3)
--- NOTE | 2016-04-28 14:16 | PN ---
Physical Exam: SUBJECTIVE: Patient seen and examined, reports feeling slightly better, pain upon ambulating onto right foot. OBJECTIVE: 35 year old male with sepsis secondary to RLE cellulitis. Vital Signs Period Temp Pulse Resp BP Sys/Post Pulse Ox Last 24 Hr 98.2 F-99.6 F 86-104 17-19 125-145/70-89 97-98 GENERAL: The patient is awake, alert, and fully oriented, in no acute distress. HEAD: Normal with no signs of trauma. EYES: PERRL, extraocular movements intact, sclera anicteric, conjunctiva clear. No ptosis. ENT: Ears normal, nares patent, oropharynx clear without exudates, moist mucous membranes. NECK: Trachea midline, full range of motion, supple. LUNGS: Breath sounds equal, clear to auscultation bilaterally, no wheezes, no crackles, no accessory muscle use. HEART: Regular rate and rhythm, S1, S2 without murmur, rub or gallop. ABDOMEN: Soft, nontender, nondistended, normoactive bowel sounds, no guarding, no rebound, no hepatosplenomegaly, no masses. EXTREMITIES: 2+ pulses, warm, well-perfused RIGHT LOWER EXTREMTIY: distal circumferential erythema NEUROLOGICAL: Cranial nerves II through XII grossly intact. Normal speech, gait not observed. PSYCH: Normal mood, normal affect. SKIN: Warm, dry, normal turgor, no rashes or lesions noted Laboratory Results - last 24 hr 04/28/16 04/28/16 04/28/16 07:38 07:38 07:38 WBC 9.5 RBC 4.70 Hgb 12.7 Hct 39.6 MCV 84.2 MCHC 32.2 RDW 14.2 Plt Count 379 D MPV 7.9 Neutrophils % 63.7 Lymphocytes % 24.6 D Monocytes % 8.7 Eosinophils % 2.5 D Basophils % 0.5 INR Sodium 135 L Potassium 3.9 Chloride 105 Carbon Dioxide 23 Anion Gap 7 L BUN 6 L Creatinine 0.8 Creat Clearance w eGFR > 60 Random Glucose 90 Calcium 8.3 L Total Bilirubin 0.5 D AST 18 ALT 33 D Alkaline Phosphatase 69 Total Protein 6.7 Albumin 3.0 L D Vancomycin Trough 8.019 04/28/16 07:38 WBC RBC Hgb Hct MCV MCHC RDW Plt Count MPV Neutrophils % Lymphocytes % Monocytes % Eosinophils % Basophils % INR 1.12 Sodium Potassium Chloride Carbon Dioxide Anion Gap BUN Creatinine Creat Clearance w eGFR Random Glucose Calcium Total Bilirubin AST ALT Alkaline Phosphatase Total Protein Albumin Vancomycin Trough Active Medications Generic Name Dose Route Start Last Admin Trade Name Freq PRN Reason Stop Dose Admin Acetaminophen 650 mg 04/25/16 19:55 04/27/16 16:01 Tylenol - PO 650 mg Q6H PRN Administration FEVER OR PAIN Heparin Sodium (Porcine) 5,000 unit 04/25/16 22:00 04/28/16 06:16 Heparin - SQ 5,000 unit TID MC Administration Sodium Chloride 1,000 mls @ 100 mls/hr 04/25/16 20:15 04/27/16 21:17 Normal Saline - IV 100 mls/hr ASDIR MC Administration Cefazolin Sodium/Dextrose 50 mls @ 100 mls/hr 04/28/16 15:00 Ancef 2 Gm Premixed Ivpb - IVPB Q6H-IV MC Oxycodone HCl 5 mg 04/26/16 08:50 04/27/16 11:39 Roxicodone - PO 5 mg Q6H PRN Administration PAIN Microbiology 04/25/16 15:00 Blood - Peripheral Venous Blood Culture - Preliminary NO GROWTH OBTAINED AFTER 48 HOURS, INCUBATION TO CONTINUE FOR 3 DAYS. 04/25/16 15:07 Blood - Peripheral Venous Blood Culture - Preliminary NO GROWTH OBTAINED AFTER 48 HOURS, INCUBATION TO CONTINUE FOR 3 DAYS. 04/26/16 14:22 Blood - Peripheral Venous Blood Culture - Preliminary NO GROWTH OBTAINED AFTER 24 HOURS, INCUBATION TO CONTINUE FOR 4 DAYS. 04/26/16 14:25 Blood - Peripheral Venous Blood Culture - Preliminary NO GROWTH OBTAINED AFTER 24 HOURS, INCUBATION TO CONTINUE FOR 4 DAYS. 04/25/16 16:24 Urine - Urine Clean Catch Urine Culture - Final NO GROWTH OBTAINED 04/25/16 16:24 Nasopharyngeal Swab Influenza Types A,B Antigen (LISA) - Final , negative 04/25/16 16:24 Nasopharyngeal Swab - Final ASSESSMENT/PLAN: 1. ID: Sepsis likely secondary to RLE cellulitis -Continue Vancomycin 1.5g bid and Unasyn 3g q6h - Vanco trough wnl - blood cultures ntd -INR is mildly prolonged, follow -RLE Duplex is negative for DVT, d-dimer is within normal limits 2. Morbid Obesity -Dietary counseling 4. FEN - low fat diet -Replete electrolytes as indicated 5. DVT Prophylaxis - OOB - Heparin SQ Code Status: Full Code Visit type - Emergency Visit Emergency Visit: Yes ED Registration Date: 04/25/16 Care time: The patient presented to the Emergency Department on the above date and was hospitalized for further evaluation of their emergent condition. - New Patient This patient is new to me today: Yes Date on this admission: 04/28/16 - Critical Care Critical Care patient: No
[2016-04-28] MEDS: CEFAZOLIN 2 GM/D5W 50 ML IVPB SCH ×2 (14:55→21:02)
[2016-04-29] MEDS: CEFAZOLIN 2 GM/D5W 50 ML IVPB SCH ×4 (02:11→21:37)
[2016-04-29] MEDS: HEPARIN NA (PORCINE) 5,000 UNITS/ML 1ML VIAL SQ SCH ×3 (05:17→21:37)
--- NOTE | 2016-04-29 07:25 | PN ---
[id number] extremity OBJECTIVE:35 year old male with sepsis secondary to RLE cellulitis. Vital Signs Period Temp Pulse Resp BP Sys/Post Pulse Ox Last 24 Hr 98.2 F-98.6 F 86-88 14-20 125-134/70-82 97-99 GENERAL: The patient is awake, alert, and fully oriented, in no acute distress. HEAD: Normal with no signs of trauma. EYES: PERRL, extraocular movements intact, sclera anicteric, conjunctiva clear. No ptosis. ENT: Ears normal, nares patent, oropharynx clear without exudates, moist mucous membranes. NECK: Trachea midline, full range of motion, supple. LUNGS: Breath sounds equal, clear to auscultation bilaterally, no wheezes, no crackles, no accessory muscle use. HEART: Regular rate and rhythm, S1, S2 without murmur, rub or gallop. ABDOMEN: Soft, nontender, nondistended, normoactive bowel sounds, no guarding, no rebound, no hepatosplenomegaly, no masses. EXTREMITIES: 2+ pulses, warm, well-perfused, no edema. right lower extremity: 5 cm erythema much improved no induration no lymphangitis noted NEUROLOGICAL: Cranial nerves II through XII grossly intact. Normal speech, gait not observed. PSYCH: Normal mood, normal affect. SKIN: Warm, dry, normal turgor, no rashes or lesions noted Laboratory Results - last 24 hr 04/28/16 04/28/16 04/28/16 07:38 07:38 07:38 WBC 9.5 RBC 4.70 Hgb 12.7 Hct 39.6 MCV 84.2 MCHC 32.2 RDW 14.2 Plt Count 379 D MPV 7.9 Neutrophils % 63.7 Lymphocytes % 24.6 D Monocytes % 8.7 Eosinophils % 2.5 D Basophils % 0.5 INR Sodium 135 L Potassium 3.9 Chloride 105 Carbon Dioxide 23 Anion Gap 7 L BUN 6 L Creatinine 0.8 Creat Clearance w eGFR > 60 Random Glucose 90 Calcium 8.3 L Total Bilirubin 0.5 D AST 18 ALT 33 D Alkaline Phosphatase 69 Total Protein 6.7 Albumin 3.0 L D Vancomycin Trough 8.019 04/28/16 07:38 WBC RBC Hgb Hct MCV MCHC RDW Plt Count MPV Neutrophils % Lymphocytes % Monocytes % Eosinophils % Basophils % INR 1.12 Sodium Potassium Chloride Carbon Dioxide Anion Gap BUN Creatinine Creat Clearance w eGFR Random Glucose Calcium Total Bilirubin AST ALT Alkaline Phosphatase Total Protein Albumin Vancomycin Trough Active Medications Generic Name Dose Route Start Last Admin Trade Name Freq PRN Reason Stop Dose Admin Acetaminophen 650 mg 04/25/16 19:55 04/27/16 16:01 Tylenol - PO 650 mg Q6H PRN Administration FEVER OR PAIN Heparin Sodium (Porcine) 5,000 unit 04/25/16 22:00 04/29/16 05:17 Heparin - SQ 5,000 unit TID [facility] Administration Cefazolin Sodium/Dextrose 50 mls @ 100 mls/hr 04/28/16 15:00 04/29/16 02:11 Ancef 2 Gm Premixed Ivpb - IVPB 100 mls/hr Q6H-IV [facility] Administration Oxycodone HCl 5 mg 04/26/16 08:50 04/27/16 11:39 Roxicodone - PO 5 mg Q6H PRN Administration PAIN Microbiology 04/25/16 16:24 Nasopharyngeal Swab Respiratory Virus Panel - Preliminary 04/25/16 15:00 Blood - Peripheral Venous Blood Culture - Preliminary NO GROWTH OBTAINED AFTER 72 HOURS, INCUBATION TO CONTINUE FOR 2 DAYS. 04/25/16 15:07 Blood - Peripheral Venous Blood Culture - Preliminary NO GROWTH OBTAINED AFTER 72 HOURS, INCUBATION TO CONTINUE FOR 2 DAYS. 04/26/16 14:22 Blood - Peripheral Venous Blood Culture - Preliminary NO GROWTH OBTAINED AFTER 48 HOURS, INCUBATION TO CONTINUE FOR 3 DAYS. 04/26/16 14:25 Blood - Peripheral Venous Blood Culture - Preliminary NO GROWTH OBTAINED AFTER 48 HOURS, INCUBATION TO CONTINUE FOR 3 DAYS. 04/25/16 16:24 Urine - Urine Clean Catch Urine Culture - Final NO GROWTH OBTAINED 04/25/16 16:24 Nasopharyngeal Swab Influenza Types A,B Antigen (LISA) - Final , negative 04/25/16 16:24 Nasopharyngeal Swab - Final ASSESSMENT/PLAN: 1. ID: Sepsis likely secondary to RLE cellulitis -Continue Vancomycin 1.5g bid and Unasyn 3g q6h -->transition to PO Abx tomm. - blood cultures ntd -INR is mildly prolonged, follow -RLE Duplex is negative for DVT, d-dimer is within normal limits 2. Morbid Obesity -Dietary counseling 4. FEN - low fat diet -Replete electrolytes as indicated 5. DVT Prophylaxis - OOB - Heparin SQ Code Status: Full Code Visit type - Emergency Visit Emergency Visit: Yes ED Registration Date: 04/25/16 Care time: The patient presented to the Emergency Department on the above date and was hospitalized for further evaluation of their emergent condition. - New Patient This patient is new to me today: No - Critical Care Critical Care patient: No - Discharge Referral Referred to [facility] Med P.C.: No
[2016-04-29 09:17] LABS: BASOPHIL 1.6 % (0-2.0); EOSINOPHIL 3.6 % (0-4.5); MCH 28.2 pg (25.7-33.7); MCHC 33.5 g/dl (32.0-35.9); MEAN CELL VOLUME 84.3 fl (80-96); MEAN PLT VOLUME 7.8 fl (7.5-11.1); NEUTROPHILS 57.3 % (42.8-82.8); PLATELET COUNT 489 K/MM3 (134-434); RDW 14.5 % (11.9-15.9); WHITE BLOOD COUNT 9.5 K/mm3 (4.0-10.0)
--- NOTE | 2016-04-29 10:34 | PN ---
Progress Note, Physician History of Present Illness: Reports less leg pain Weight bearing and ambulatory without pain Temps down-afebrile WBC WNL - Current Medication List Current Medications: Active Medications Acetaminophen (Tylenol -) 650 mg PO Q6H PRN PRN Reason: FEVER OR PAIN Last Admin: 04/27/16 16:01 Dose: 650 mg Heparin Sodium (Porcine) (Heparin -) 5,000 unit SQ TID [facility] Last Admin: 04/29/16 05:17 Dose: 5,000 unit Cefazolin Sodium/Dextrose (Ancef 2 Gm Premixed Ivpb -) 50 mls @ 100 mls/hr IVPB Q6H-IV [facility] Last Admin: 04/29/16 08:39 Dose: 100 mls/hr Oxycodone HCl (Roxicodone -) 5 mg PO Q6H PRN PRN Reason: PAIN Last Admin: 04/27/16 11:39 Dose: 5 mg - Objective Vital Signs: Vital Signs Temperature 98.6 F 04/29/16 06:49 Pulse Rate 87 04/29/16 06:49 Respiratory Rate 20 04/29/16 06:49 Blood Pressure 134/82 04/29/16 06:49 O2 Sat by Pulse Oximetry (%) 99 04/29/16 06:49 Constitutional: Yes: No Distress, Obese Eyes: Yes: Conjunctiva Clear Cardiovascular: Yes: Regular Rate and Rhythm, S1, S2 Respiratory: Yes: CTA Bilaterally Gastrointestinal: Yes: Normal Bowel Sounds, Soft, Abdomen, Obese. No: Tenderness Extremities: Yes: Other (area of erythema R LE No warmth / tenderness) Labs: CBC, BMP 04/29/16 07:00 04/29/16 08:40 INR, PTT INR 1.12 (0.82-1.09) 04/28/16 07:38 Assessment/Plan Recurrent R LE cellulitis Possible sepsis secondary to cellulitis Morbid obesity May substitute keflex 1gm po tid x 7d Pt instructed to keep R LE elevated
[2016-04-30] MEDS: CEFAZOLIN 2 GM/D5W 50 ML IVPB SCH ×3 (03:05→14:35)
[2016-04-30] MEDS: HEPARIN NA (PORCINE) 5,000 UNITS/ML 1ML VIAL SQ SCH ×2 (06:00→14:35)
[2016-04-30] MEDS: ACETAMINOPHEN 325 MG TABLET (FP) PO PRN (10:11)
--- NOTE | 2016-04-30 12:27 | DS ---
Physical Exam: SUBJECTIVE: Patient seen and examined OBJECTIVE: Vital Signs Period Temp Pulse Resp BP Sys/Post Pulse Ox Last 24 Hr 98.4 F-98.6 F 80-91 20-20 131-143/84-91 97-100 PHYSICAL EXAM GENERAL: The patient is awake, alert, and fully oriented, in no acute distress. HEAD: Normal with no signs of trauma. EYES: PERRL, extraocular movements intact, sclera anicteric, conjunctiva clear. ENT: Ears normal, nares patent, oropharynx clear without exudates, moist mucous membranes. NECK: Trachea midline, full range of motion, supple. LUNGS: Breath sounds equal, clear to auscultation bilaterally, no wheezes, no crackles, no accessory muscle use. HEART: Regular rate and rhythm, S1, S2 without murmur, rub or gallop. ABDOMEN: Soft, nontender, nondistended, normoactive bowel sounds, no guarding, no rebound, no hepatosplenomegaly, no masses. EXTREMITIES: 2+ pulses, warm, well-perfused, no edema. NEUROLOGICAL: Cranial nerves II through XII grossly intact. Normal speech, gait not observed. PSYCH: Normal mood, normal affect. SKIN: Warm, dry, normal turgor, no rashes or lesions noted. LABS HOSPITAL COURSE: Date of Admission:04/25/16 Date of Discharge: 04/30/16 Discharge Summary Reason For Visit: RIGHT LEG CELLULITIS Current Active Problems Cellulitis of right lower extremity (Acute) DVT prophylaxis (Acute) Morbid (severe) obesity due to excess calories (Acute) Sepsis (Acute) Condition: Stable - Instructions Referrals: Cintia Pedraza MD [Primary Care Provider] - - Home Medications Comprehensive Discharge Medication List: Ambulatory Orders NK [No Known Home Medication] 04/25/16
[2016-04-30 13:57] VITALS: BP 125/60; PULSE 87; TEMP 98.7
== END 2016-04-30 19:15 | disposition home or self-care (01) | DRG 720 ==
LOC: FER 14:12 → FM/S 19:49
PROVIDERS: ADMIT Internal Medicine; ATTEND Nurse Practitioner Family
DX: A41.89 Other specified sepsis (principal); L03.115 Cellulitis of right lower limb; E66.01 Morbid (severe) obesity due to excess calories; Z68.43 Body mass index [BMI] 50.0-59.9, adult; Z71.3 Dietary counseling and surveillance
CPT/HCPCS: 36415; 71010-TC; 80048; 80053; 81003; 82550; 82553; 82803; 83605; 84484; 85025; 85379; 85610; 85651; 85730; 86140; 86850; 86900; 86901; 87040; 87086; 87254; 87804; 93005; 93971-TC; 97116-GP; 97161-GP; 99284-25; G0480; J1644

== ENCOUNTER 2017-07-23 15:30 | Inpatient (IN) | payer BC, OTHER ==
[2017-07-23] MEDS ORDERED: SODIUM CHLORIDE 1,000 ML IV STA (15:59)
[2017-07-23] MEDS ORDERED: ACETAMINOPHEN 1000 MG/100 ML VIAL (NON FORMULARY) IVPB ONE (15:59)
--- NOTE | 2017-07-23 16:08 | PDOC ---
History of Present Illness - General History Source: Patient, Old Records Exam Limitations: No Limitations - History of Present Illness Initial Comments: 07/23/17 16:25 The patient is a 36 year old male with a significant past medical history of cellulitic infections to the leg who presents to the emergency department complaining for evaluation of right leg pain. The patient reports worsening right leg pain since yesterday. He describes the pain is localized on the right leg between ankle and calf. The patient reports associated symptoms of lightheadedness, feeling dehydrated fever, chills, and dyspnea secondary to chills. He reports a history of previous infections on the right leg which he states occurs once every 4 years. The patient denies taking any medication for the symptoms. The patient denies chest pain, headache, nausea, vomiting, diarrhea, and constipation. Denies dysuria, frequency, urgency, and hematuria. Allergies: NKDA Past surgical history: The patient denies. Social history: No reported cigarette, alcohol, or drug use. <Cristino Lopez - Last Filed: 07/23/17 16:25> - General History Source: Patient, Old Records Exam Limitations: No Limitations <Brando Bradford - Last Filed: 07/23/17 18:57> - General Chief Complaint: Redness To Affected Area Stated Complaint: CELLULITIS Time Seen by Provider: 07/23/17 15:58 Past History <Cristino Lopez - Last Filed: 07/23/17 16:25> - Past Medical History Anemia: No Asthma: No Cancer: No Cardiac Disorders: No CVA: No COPD: No CHF: No Dementia: No Diabetes: No GI Disorders: No Disorders: No HTN: No Hypercholesterolemia: No Liver Disease: No Seizures: No Thyroid Disease: No - Suicide/Smoking/Psychosocial Hx Smoking Status: No Smoking History: Never smoked Years of Tobacco Use: 0 Number of Cigarettes Smoked Daily: 0 Hx Alcohol Use: No Drug/Substance Use Hx: No Substance Use Type: None Hx Substance Use Treatment: No <Brando Bradford - Last Filed: 07/23/17 18:57> - Past Medical History Allergies/Adverse Reactions: Allergies Allergy/AdvReac Type Severity Reaction Status Date / Time No Known Allergies Allergy Verified 07/23/17 15:56 Home Medications: Ambulatory Orders NK [No Known Home Medication] 07/23/17 Review of Systems - Review of Systems Able to Perform ROS?: Yes Comments:: GENERAL/CONSTITUTIONAL: (+)Fever. (+)Chills. No weakness. HEAD, EYES, EARS, NOSE AND THROAT: No change in vision. No ear pain or discharge. No sore throat. CARDIOVASCULAR: (+)Shortness of breath. No chest pain. RESPIRATORY: No cough, wheezing, or hemoptysis. GASTROINTESTINAL: No nausea, vomiting, diarrhea or constipation. GENITOURINARY: No dysuria, frequency, or change in urination. MUSCULOSKELETAL: (+)Right leg pain. No joint or muscle swelling. No neck or back pain. SKIN: No rash NEUROLOGIC: No headache, vertigo, loss of consciousness, or change in strength/ sensation. ENDOCRINE: (+)increased thirst. No abnormal weight change. HEMATOLOGIC/LYMPHATIC: No anemia, easy bleeding, or history of blood clots. ALLERGIC/IMMUNOLOGIC: No hives or skin allergy. <Cristino Lopez - Last Filed: 07/23/17 16:25> *Physical Exam - Vital Signs Last Vital Signs Temp Pulse Resp BP Pulse Ox 103.0 F H 122 H 30 H 111/67 100 07/23/17 15:55 07/23/17 15:55 07/23/17 15:55 07/23/17 15:55 07/23/17 15:55 - Physical Exam Comments: GENERAL: (+)Obese. (+)Mildly tachypneic. Awake, alert, and fully oriented, in no acute distress HEAD: No signs of trauma EYES: PERRLA, EOMI, sclera anicteric, conjunctiva clear ENT: Auricles normal inspection, hearing grossly normal, nares patent, Moist mucosa NECK: Normal ROM, supple, no JVD, or masses LUNGS: Breath sounds equal, clear to auscultation bilaterally. No wheezes, and no crackles HEART: Regular rate and rhythm, normal S1 and S2, no murmurs, rubs or gallops ABDOMEN: Soft, nontender. No guarding, no rebound. No masses EXTREMITIES: (+)8x10cm erythema along distal medial portion of right leg, tender to palpation. NEUROLOGICAL: Cranial nerves II through XII grossly intact. Normal speech. SKIN: Warm, Dry, normal turgor. No crepitus. No rashes or lesions noted. <Cristino Lopez - Last Filed: 07/23/17 16:25> Heart Score/ECG Review #1 ECG reviewed & interpreted by me at: 17:15 07/23/17 17:35 NSR 123, no std/stu, normal axis, normal intervals, QTC 443 msec <SuzetteBrando - Last Filed: 07/23/17 18:57> ED Treatment Course - LABORATORY CBC & Chemistry Diagram: 07/23/17 17:35 07/23/17 17:35 <Brando Bradford - Last Filed: 07/23/17 18:57> Medical Decision Making - Medical Decision Making 07/23/17 16:08 A portion of this note was documented by scribe services under my direction. I have reviewed the details of the note, within reason, and agree with the documentation with the following case summary and management plan written by me. Patient treated in the ED. Nursing notes are reviewed and incorporated into the medical decision-making. Vital signs reviewed. Peripheral IV access obtained by the nurse, laboratory studies are drawn and sent, reviewed and interpreted by myself. Vital Signs Temp Pulse Resp BP Pulse Ox 103.0 F H 122 H 30 H 111/67 100 07/23/17 15:55 07/23/17 15:55 07/23/17 15:55 07/23/17 15:55 07/23/17 15:55 36 year old male with past medical history of obesity and reoccurent RLE cellulitis p/w RLE cellulitis. The patient was in his usual state of health yesterday. Noted today, this morning, felt redness and warmth and tactile fevers, similar to his prior cellulitis. Pt is unsure of what is the inciting factor. States that he woke up and felt a distal medial erythema similar to prior incident in 2017 (which is noted in documentation). Denies chest pain, SOB, abdominal pain, nausea, vomiting, diarrhea, dysuria. Denies unilateral calf swelling. Findings are consistent with cellulitis. Given fever, sepsis workup initiated. There is no crepitus, and at least of now, does not appear to be necrotizing fasciitis. Will need to make careful observation. Empiric antibiotics, IVF, cultures. Low threshold for admission. 07/23/17 18:54 CBC, BMP 07/23/17 17:35 07/23/17 17:35 CMP Sodium 129 mmol/L (136-145) L 07/23/17 17:35 Potassium 3.8 mmol/L (3.5-5.1) 07/23/17 17:35 Chloride 98 mmol/L (98-107) 07/23/17 17:35 Carbon Dioxide 22 mmol/L (22-28) 07/23/17 17:35 Anion Gap 9 (8-16) 07/23/17 17:35 BUN 10 mg/dl (7-18) D 07/23/17 17:35 Creatinine 1.2 mg/dl (0.6-1.3) 07/23/17 17:35 Creat Clearance w eGFR > 60 (>60) 07/23/17 17:35 Random Glucose 98 mg/dl (74-106) 07/23/17 17:35 Calcium 8.7 mg/dl (8.4-10.2) 07/23/17 17:35 Total Bilirubin 0.6 mg/dl (0.2-1.0) 07/23/17 17:35 AST 18 U/L (10-42) 07/23/17 17:35 ALT 18 U/L (10-40) D 07/23/17 17:35 Alkaline Phosphatase 73 U/L (32-92) 07/23/17 17:35 Troponin I < 0.03 ng/ml (0.00-0.06) 07/23/17 17:35 Total Protein 7.5 g/dl (6.4-8.3) 07/23/17 17:35 Albumin 3.8 g/dl (3.5-5.0) D 07/23/17 17:35 WBC 16.8. Ceftriaxone and vancomycin ordered. Will admit patient to the hospital for further management and disposition. <Brando Bradford - Last Filed: 07/23/17 18:57> *DC/Admit/Observation/Transfer - Attestations Scribe Attestion: Documentation prepared by Cristino Lopez, acting as medical pathology teacher for Bradno Bradford MD. <Cristino Lopez - Last Filed: 07/23/17 16:25> - Discharge Dispostion Decision to Admit order: Yes <Brando Bradford - Last Filed: 07/23/17 18:57> Diagnosis at time of Disposition: Cellulitis of right lower extremity - Discharge Dispostion Condition at time of disposition: Fair
[2017-07-23] MEDS ORDERED: CEFTRIAXONE 1,000 MG in DEXTROSE 5%-WATER - 50 ML IVPB ONE (16:11)
[2017-07-23] MEDS ORDERED: cefTRIAXone SODIUM 1 GM VIAL ONE (17:20)
[2017-07-23] MEDS ORDERED: ACETAMINOPHEN INJECTION 100 ML IVPB ONE (17:20)
[2017-07-23 18:08] LABS: URINE APPEARANCE Clear; URINE BILIRUBIN Negative (NEGATIVE); URINE GLUCOSE (UA) Negative (NEGATIVE); URINE KETONE Negative (NEGATIVE); URINE LEUK ESTERASE Negative (NEGATIVE); URINE NITRITE Negative (NEGATIVE); URINE PROTEIN Negative (NEGATIVE)
[2017-07-23 18:10] LABS: URINE BLOOD Trace-intact (NEGATIVE); URINE COLOR YELLOW
[2017-07-23 18:13] LABS: HEMATOCRIT 42.3 % (35.4-49); HEMOGLOBIN 14.1 GM/dl (11.7-16.9); MCH 27.9 pg (25.7-33.7); MCHC 33.2 g/dl (32.0-35.9); MEAN CELL VOLUME 84.1 fl (80-96); MEAN PLT VOLUME 7.4 fl (7.5-11.1); PLATELET COUNT 413 K/MM3 (134-434); RBC 5.03 M/mm3 (4.00-5.60); RDW 14.4 % (11.9-15.9); WHITE BLOOD COUNT 16.8 K/mm3 (4.0-10.8)
[2017-07-23 18:20] LABS: ACTIVATED PTT 31.5 SECONDS (24.0-38.9)
[2017-07-23 18:23] LABS: ALBUMIN 3.8 g/dl (3.5-5.0); ALK PHOS 73 U/L (32-92); ANION GAP 9 (8-16); BILIRUBIN,TOTAL 0.6 mg/dl (0.2-1.0); BLOOD UREA NITROGEN 10 mg/dl (7-18); CALCIUM 8.7 mg/dl (8.4-10.2); CHLORIDE 98 mmol/L (98-107); CO2 22 mmol/L (22-28); CREATININE 1.2 mg/dl (0.6-1.3); GLUCOSE,RANDOM 98 mg/dl (74-106); POTASSIUM 3.8 mmol/L (3.5-5.1); SGOT/AST 18 U/L (10-42); SGPT/ALT 18 U/L (10-40); SODIUM 129 mmol/L (136-145); TOT PROT 7.5 g/dl (6.4-8.3)
[2017-07-23 18:25] LABS: INR 1.32 (0.82-1.09); PROTHROMBIN TIME (PATIENT) 14.7 SEC (10.2-13.0)
[2017-07-23 18:30] LABS: URINE BACTERIA FEW /hpf (NEGATIVE); URINE WBC 0-2 (0-2)
[2017-07-23] MEDS ORDERED: VANCOMYCIN 1 GRAM (PRE-DOCKED) 1,000 MG/250 ML BAG IVPB ONE (18:36)
[2017-07-23 19:21] LABS: VENOUS PC02 34.8 mmHg (38-52); VENOUS PH 7.46 (7.32-7.42)
[2017-07-23] MEDS ORDERED: VANCOMYCIN 1,000 MG VIAL (RESTRICTED TO ID ONLY) ONE (19:45)
[2017-07-23 21:00] LABS: PLATELET ESTIMATE SLT INCREASE
--- NOTE | 2017-07-23 22:31 | HP ---
CHIEF COMPLAINT: Right Leg Swelling, Pain PCP: HISTORY OF PRESENT ILLNESS: This is a 36 y/o man with a PMHx of RLE Cellulitis, Severe Obesity. Who presents to the ED with pain, swelling, redness to his RLE x1 day. Patient reports warmth and streaking up the leg. Patient endorses fever, chills and shaking, lightheadedness, dyspnea. Patient denies recent outdoor exposure, animal or bug bites. Patient reports difficulty ambulating subsequently due to the pain. ER course was notable for: (1) Sepsis Criteria Met: T Max 103, P 122, WBC 16.8 with L shift (neutrophils 92 ) (2) Vancomycin and Ceftriaxone given (3) Recent Travel: None PAST MEDICAL HISTORY: See HPI PAST SURGICAL HISTORY: None Social History: Smoking: Never Alcohol: None Drugs: None Family History: Brother: DM Allergies No Known Allergies Allergy (Verified 07/23/17 15:56) HOME MEDICATIONS: Home Medications Medication Instructions Recorded NK [No Known Home Medication] 07/23/17 REVIEW OF SYSTEMS CONSTITUTIONAL: fever, chills, Absent: diaphoresis, generalized weakness, malaise, loss of appetite, weight change HEENT: Absent: rhinorrhea, nasal congestion, throat pain, throat swelling, difficulty swallowing, mouth swelling, ear pain, eye pain, visual changes CARDIOVASCULAR: Absent: chest pain, syncope, palpitations, irregular heart rate, lightheadedness , peripheral edema RESPIRATORY: shortness of breath Absent: cough, dyspnea with exertion, orthopnea, wheezing, stridor, hemoptysis GASTROINTESTINAL: Absent: abdominal pain, abdominal distension, nausea, vomiting, diarrhea, constipation, melena, hematochezia GENITOURINARY: Absent: dysuria, frequency, urgency, hesitancy, hematuria, flank pain, genital pain MUSCULOSKELETAL: myalgia, arthralgia, joint swelling Absent: back pain, neck pain SKIN: Absent: rash, itching, pallor HEMATOLOGIC/IMMUNOLOGIC: Absent: easy bleeding, easy bruising, lymphadenopathy, frequent infections ENDOCRINE: Absent: unexplained weight gain, unexplained weight loss, heat intolerance, cold intolerance NEUROLOGIC: Absent: headache, focal weakness or paresthesias, dizziness, unsteady gait, seizure, mental status changes, bladder or bowel incontinence PSYCHIATRIC: Absent: anxiety, depression, suicidal or homicidal ideation, hallucinations. PHYSICAL EXAMINATION Vital Signs - 24 hr 07/23/17 07/23/1718 15:55 20:00 21:26 Temperature 103.0 F H 102.6 F H Pulse Rate 122 H Pulse Rate [ 108 H Left Radial] Respiratory 30 H 18 Rate Blood Pressure 111/67 Blood Pressure 121/72 [Right Arm] O2 Sat by Pulse 100 99 Oximetry (%) GENERAL: Severe obesity, awake, alert, and fully oriented, in no acute distress. HEAD: Normal with no signs of trauma. EYES: Pupils equal, round and reactive to light, extraocular movements intact, sclera anicteric, conjunctiva clear. No lid lag. EARS, NOSE, THROAT: Ears normal, nares patent, oropharynx clear without exudates. Dry mucous membranes. NECK: Normal range of motion, supple without lymphadenopathy, JVD, or masses. LUNGS: Breath sounds equal, clear to auscultation bilaterally. No wheezes, and no crackles. No accessory muscle use. HEART: Regular rate and rhythm, normal S1 and S2 without murmur, rub or gallop. ABDOMEN: Soft, nontender, not distended, normoactive bowel sounds, no guarding, no rebound, no masses. No hepatomegaly or splenomegaly. MUSCULOSKELETAL: RLE tenderness. Normal range of motion at all joints. No bony deformities. No CVA tenderness. UPPER EXTREMITIES: 2+ pulses, warm, well-perfused. No cyanosis. No clubbing. No peripheral edema. LOWER EXTREMITIES: +3 R> L peripheral edema. TN to palpation. 2+ pulses, warm, well-perfused. No calf tenderness. NEUROLOGICAL: Cranial nerves II-XII intact. Normal speech. Gait not observed. PSYCHIATRIC: Cooperative. Good eye contact. Appropriate mood and affect. SKIN:+erythema, edema, warmth from R-ankle to mid-calf noted Warm, dry, normal turgor, no rashes. normal capillary refill. Laboratory Results - last 24 hr 07/23/17 07/23/17 07/23/17 17:35 17:35 17:35 WBC 16.8 H D RBC 5.03 Hgb 14.1 Hct 42.3 MCV 84.1 MCH 27.9 MCHC 33.2 RDW 14.4 Plt Count 413 MPV 7.4 L Neutrophils % No Result Required. Neutrophils % (Manual) 92.0 H* Band Neutrophils % 3.0 Lymphocytes % No Result Required. Lymphocytes % (Manual) 3.0 L Monocytes % (Manual) 2 L Platelet Estimate Slt increase Platelet Comment Few large plts. PT with INR 14.7 H INR 1.32 H PTT (Actin FS) 31.5 VBG pH POC VBG pCO2 POC VBG pO2 Mixed VBG HCO3 Sodium Potassium Chloride Carbon Dioxide Anion Gap BUN Creatinine Creat Clearance w eGFR Random Glucose Lactic Acid Calcium Total Bilirubin AST ALT Alkaline Phosphatase Troponin I Total Protein Albumin Urine Color Yellow Urine Appearance Clear Urine pH 8.0 Ur Specific [place] 1.020 Urine Protein Negative Urine Glucose (UA) Negative Urine Ketones Negative Urine Blood Trace-intact H Urine Nitrite Negative Urine Bilirubin Negative Urine Urobilinogen 1.0 Ur Leukocyte Esterase Negative Urine RBC 2-5 Urine WBC 0-2 Urine Bacteria Few 07/23/17 07/23/17 07/23/17 17:35 17:35 17:35 WBC RBC Hgb Hct MCV MCH MCHC RDW Plt Count MPV Neutrophils % Neutrophils % (Manual) Band Neutrophils % Lymphocytes % Lymphocytes % (Manual) Monocytes % (Manual) Platelet Estimate Platelet Comment PT with INR INR PTT (Actin FS) VBG pH 7.46 H POC VBG pCO2 34.8 L POC VBG pO2 28.0 Mixed VBG HCO3 24.3 Sodium 129 L Potassium 3.8 Chloride 98 Carbon Dioxide 22 Anion Gap 9 BUN 10 D Creatinine 1.2 Creat Clearance w eGFR > 60 Random Glucose 98 Lactic Acid 2.0 Calcium 8.7 Total Bilirubin 0.6 AST 18 ALT 18 D Alkaline Phosphatase 73 Troponin I Total Protein 7.5 Albumin 3.8 D Urine Color Urine Appearance Urine pH Ur Specific [place] Urine Protein Urine Glucose (UA) Urine Ketones Urine Blood Urine Nitrite Urine Bilirubin Urine Urobilinogen Ur Leukocyte Esterase Urine RBC Urine WBC Urine Bacteria 07/23/17 07/23/17 17:35 21:07 WBC RBC Hgb Hct MCV MCH MCHC RDW Plt Count MPV Neutrophils % Neutrophils % (Manual) Band Neutrophils % Lymphocytes % Lymphocytes % (Manual) Monocytes % (Manual) Platelet Estimate Platelet Comment PT with INR INR PTT (Actin FS) VBG pH POC VBG pCO2 POC VBG pO2 Mixed VBG HCO3 Sodium Potassium Chloride Carbon Dioxide Anion Gap BUN Creatinine Creat Clearance w eGFR Random Glucose Lactic Acid 1.9 Calcium Total Bilirubin AST ALT Alkaline Phosphatase Troponin I < 0.03 Total Protein Albumin Urine Color Urine Appearance Urine pH Ur Specific [place] Urine Protein Urine Glucose (UA) Urine Ketones Urine Blood Urine Nitrite Urine Bilirubin Urine Urobilinogen Ur Leukocyte Esterase Urine RBC Urine WBC Urine Bacteria ASSESSMENT/PLAN: This is a 36 y/o man with Severe Morbid Obesity, Chronic RLE Cellulitis. Placed in Observation Sepsis secondary to RLE Cellulitis Hyponatremia. Plan: Place in Observation Sepsis secondary to RLE Cellulitis, Acute Hyponatremia Sepsis Criteria MET-Leukocytosis, L-shift, T Max 103 Blood Cultures-pending Vancomycin, Ceftriaxone given in ED Will continue Vancomcyin, add Unasyn for Staph, Anaerobic coverage Appreciate ID consult Vanco Trough in am Monitor vitals Wells Score 2 Duplex of RLE r/o DVT Elevate extremity Oxycodone prn pain Tylenol prn Na [id number] Repleted with NS 1L in ED Monitor CBC, BMP DVT ppx- OOB, Heparin SQ Code Status: Full Code Dispo: Requires in patient care Problem List - Problem (1) Sepsis Code(s): A41.9 - SEPSIS, UNSPECIFIED ORGANISM (2) Cellulitis of right lower extremity Code(s): L03.115 - CELLULITIS OF RIGHT LOWER LIMB (3) Morbid (severe) obesity due to excess calories Code(s): E66.01 - MORBID (SEVERE) OBESITY DUE TO EXCESS CALORIES (4) Hyponatremia Code(s): E87.1 - HYPO-OSMOLALITY AND HYPONATREMIA (5) DVT prophylaxis Code(s): CWK6014 - Visit type - Emergency Visit Emergency Visit: Yes ED Registration Date: 07/23/17 Care time: The patient presented to the Emergency Department on the above date and was hospitalized for further evaluation of their emergent condition. - New Patient This patient is new to me today: Yes Date on this admission: 07/23/17 - Critical Care Critical Care patient: No Hospitalist Screening - Colonoscopy Questionnaire Colonoscopy Questionnaire: Colonoscopy Questionnaire - Patient: 50 - 75 years old and never had a screening colonoscopy: No History of colon or rectal polyps, or CA: No History of IBD, Crohn's disease or UC: No History of abdominal radiation therapy as a child: No - Relative: 1 with colon or rectal CA, or polyps at age 60 or younger: No Colon or rectal CA diagnosed at age 45 or younger: No Multiple relatives with colon or rectal CA: No - Outcome: Screening Result: Negative Screen
[2017-07-23 22:33] VITALS: BMI 57.6
[2017-07-23] MEDS: HEPARIN NA (PORCINE) 5,000 UNITS/ML 1ML VIAL SQ SCH (23:02)
[2017-07-23] MEDS: ACETAMINOPHEN 325 MG TABLET (FP) PO PRN (23:45)
[2017-07-24] MEDS: oxyCODONE HCL 5 MG TABLET PO PRN ×3 (00:12→19:57)
[2017-07-24] MEDS ORDERED: ACETAMINOPHEN 325 MG TABLET (FP) PO ONE (01:41)
[2017-07-24] MEDS ORDERED: SODIUM CHLORIDE 500 ML IV STA (01:53)
[2017-07-24] MEDS ORDERED: SODIUM CHLORIDE 1,000 ML IV STA ×2 (01:57→10:28)
[2017-07-24] MEDS: HEPARIN NA (PORCINE) 5,000 UNITS/ML 1ML VIAL SQ SCH ×3 (06:17→21:33)
[2017-07-24] MEDS: ACETAMINOPHEN 325 MG TABLET (FP) PO PRN ×2 (08:08→19:57)
[2017-07-24] MEDS ORDERED: AMPICILLIN NA/SULBACTAM NA 3 GM in SODIUM CHLORIDE 100 ML IVPB SCH (09:00)
[2017-07-24 09:31] LABS: ANION GAP 4 (8-16); BLOOD UREA NITROGEN 8 mg/dl (7-18); CALCIUM 7.9 mg/dl (8.4-10.2); CHLORIDE 104 mmol/L (98-107); CO2 23 mmol/L (22-28); CREATININE 1.1 mg/dl (0.6-1.3); GLUCOSE,RANDOM 112 mg/dl (74-106); POTASSIUM 3.3 mmol/L (3.5-5.1); SODIUM 131 mmol/L (136-145)
[2017-07-24] MEDS ORDERED: VANCOMYCIN 1,500 MG in DEXTROSE 5%-WATER - 500 ML IVPB ONE (10:00)
--- NOTE | 2017-07-24 10:18 | EKG ---
Test Reason : Blood Pressure : / mmHG Vent. Rate : 123 BPM Atrial Rate : 123 BPM P-R Int : 142 ms QRS Dur : 080 ms QT Int : 310 ms P-R-T Axes : 044 006 019 degrees QTc Int : 443 ms SINUS TACHYCARDIA POSSIBLE LEFT ATRIAL ENLARGEMENT WHEN COMPARED WITH ECG OF 25-APR-2016 15:57, NO SIGNIFICANT CHANGE WAS FOUND Confirmed by CAMERON KAPLAN MD ([id number]) on 07/24/2017 10:18:19 AM Referred By: DR WILLIS Confirmed By:CAMERON KAPLAN MD
[2017-07-24 10:41] LABS: BASO % 0.1 % (0-2.0); HEMATOCRIT 36.3 % (35.4-49); HEMOGLOBIN 12.9 GM/dl (11.7-16.9); MCH 29.4 pg (25.7-33.7); MCHC 35.4 g/dl (32.0-35.9); MEAN PLT VOLUME 7.6 fl (7.5-11.1); NEUT % 88.9 % (42.8-82.8); PLATELET COUNT 310 K/MM3 (134-434); RBC 4.37 M/mm3 (4.00-5.60); WHITE BLOOD COUNT 15.4 K/mm3 (4.0-10.8)
[2017-07-24] MEDS ORDERED: POTASSIUM CHLORIDE ORAL LIQUID 20 MEQ/15 ML PO ONE (10:45)
--- NOTE | 2017-07-24 11:46 | PN ---
Progress Note (short form) - Note Progress Note: ID Consult dictated Recurrent R LE cellulitis Fever/ leukocytosis R/O sepsis secondary to skin source Morbid obesity Pending cultures empiric vancomycin / unasyn Elevation/ analgesics
--- NOTE | 2017-07-24 12:13 | PN ---
Physical Exam: SUBJECTIVE: Patient seen and examined. He reports he feels chills and pain when he puts pressure or walking. Febrile OBJECTIVE: Vital Signs Period Temp Pulse Resp BP Sys/Post Pulse Ox Last 24 Hr 100.7 F-103.0 F 108-122 18-30 88-127/35-83 97-100 PE Neuro: alert, awake, cn 2-12intact Pulm: distant, CV: s1s2 rrr no mrg Abd: obese abd, s nt nd + bs Ext: RLE ankle erythema, hot and tender to touch Laboratory Results - last 24 hr 07/23/17 07/23/17 07/23/17 17:35 17:35 17:35 WBC 16.8 H D RBC 5.03 Hgb 14.1 Hct 42.3 MCV 84.1 MCH 27.9 MCHC 33.2 RDW 14.4 Plt Count 413 MPV 7.4 L Neutrophils % No Result Required. Neutrophils % (Manual) 92.0 H* Band Neutrophils % 3.0 Lymphocytes % No Result Required. Lymphocytes % (Manual) 3.0 L Monocytes % Monocytes % (Manual) 2 L Eosinophils % Basophils % Platelet Estimate Slt increase Platelet Comment Few large plts. PT with INR 14.7 H INR 1.32 H PTT (Actin FS) 31.5 VBG pH POC VBG pCO2 POC VBG pO2 Mixed VBG HCO3 Sodium Potassium Chloride Carbon Dioxide Anion Gap BUN Creatinine Creat Clearance w eGFR Random Glucose Lactic Acid Calcium Total Bilirubin AST ALT Alkaline Phosphatase Troponin I Total Protein Albumin Urine Color Yellow Urine Appearance Clear Urine pH 8.0 Ur Specific [place] 1.020 Urine Protein Negative Urine Glucose (UA) Negative Urine Ketones Negative Urine Blood Trace-intact H Urine Nitrite Negative Urine Bilirubin Negative Urine Urobilinogen 1.0 Ur Leukocyte Esterase Negative Urine RBC 2-5 Urine WBC 0-2 Urine Bacteria Few 07/23/17 07/23/17 07/23/17 17:35 17:35 17:35 WBC RBC Hgb Hct MCV MCH MCHC RDW Plt Count MPV Neutrophils % Neutrophils % (Manual) Band Neutrophils % Lymphocytes % Lymphocytes % (Manual) Monocytes % Monocytes % (Manual) Eosinophils % Basophils % Platelet Estimate Platelet Comment PT with INR INR PTT (Actin FS) VBG pH 7.46 H POC VBG pCO2 34.8 L POC VBG pO2 28.0 Mixed VBG HCO3 24.3 Sodium 129 L Potassium 3.8 Chloride 98 Carbon Dioxide 22 Anion Gap 9 BUN 10 D Creatinine 1.2 Creat Clearance w eGFR > 60 Random Glucose 98 Lactic Acid 2.0 Calcium 8.7 Total Bilirubin 0.6 AST 18 ALT 18 D Alkaline Phosphatase 73 Troponin I Total Protein 7.5 Albumin 3.8 D Urine Color Urine Appearance Urine pH Ur Specific [place] Urine Protein Urine Glucose (UA) Urine Ketones Urine Blood Urine Nitrite Urine Bilirubin Urine Urobilinogen Ur Leukocyte Esterase Urine RBC Urine WBC Urine Bacteria 07/23/17 07/23/17 07/24/17 17:35 21:07 08:55 WBC 15.4 H RBC 4.37 Hgb 12.9 Hct 36.3 MCV 83.0 MCH 29.4 MCHC 35.4 RDW 14.0 Plt Count 310 D MPV 7.6 Neutrophils % 88.9 H D Neutrophils % (Manual) Band Neutrophils % Lymphocytes % 6.0 L D Lymphocytes % (Manual) Monocytes % 5.0 Monocytes % (Manual) Eosinophils % 0.0 D Basophils % 0.1 Platelet Estimate Platelet Comment PT with INR INR PTT (Actin FS) VBG pH POC VBG pCO2 POC VBG pO2 Mixed VBG HCO3 Sodium Potassium Chloride Carbon Dioxide Anion Gap BUN Creatinine Creat Clearance w eGFR Random Glucose Lactic Acid 1.9 Calcium Total Bilirubin AST ALT Alkaline Phosphatase Troponin I < 0.03 Total Protein Albumin Urine Color Urine Appearance Urine pH Ur Specific [place] Urine Protein Urine Glucose (UA) Urine Ketones Urine Blood Urine Nitrite Urine Bilirubin Urine Urobilinogen Ur Leukocyte Esterase Urine RBC Urine WBC Urine Bacteria 07/24/17 08:55 WBC RBC Hgb Hct MCV MCH MCHC RDW Plt Count MPV Neutrophils % Neutrophils % (Manual) Band Neutrophils % Lymphocytes % Lymphocytes % (Manual) Monocytes % Monocytes % (Manual) Eosinophils % Basophils % Platelet Estimate Platelet Comment PT with INR INR PTT (Actin FS) VBG pH POC VBG pCO2 POC VBG pO2 Mixed VBG HCO3 Sodium 131 L Potassium 3.3 L Chloride 104 Carbon Dioxide 23 Anion Gap 4 L BUN 8 Creatinine 1.1 Creat Clearance w eGFR Random Glucose 112 H Lactic Acid Calcium 7.9 L Total Bilirubin AST ALT Alkaline Phosphatase Troponin I Total Protein Albumin Urine Color Urine Appearance Urine pH Ur Specific [place] Urine Protein Urine Glucose (UA) Urine Ketones Urine Blood Urine Nitrite Urine Bilirubin Urine Urobilinogen Ur Leukocyte Esterase Urine RBC Urine WBC Urine Bacteria Active Medications Generic Name Dose Route Start Last Admin Trade Name Freq PRN Reason Stop Dose Admin Acetaminophen 650 mg 07/24/17 01:40 07/24/17 08:08 Tylenol - PO 650 mg Q6H PRN Administration FEVER Heparin Sodium (Porcine) 5,000 unit 07/23/17 22:00 07/24/17 06:17 Heparin - SQ 5,000 unit TID MC Administration Vancomycin HCl 1,500 mg/ 500 mls @ 250 mls/hr 07/24/17 22:00 Dextrose IVPB Q12H MC Protocol Ampicillin Sodium/Sulbactam 100 mls @ 200 mls/hr 07/24/17 15:00 Sodium 3 gm/ Sodium Chloride IVPB Q6H-IV MC Oxycodone HCl 5 mg 07/24/17 10:29 Roxicodone - PO Q6H PRN PAIN LEVEL 1-5 Assessment: 36 year old male with severe morbid obesity, Chronic RLE Cellulitis admitted with sepsis d/t RLE cellulitis. Plan: 1. Severe sepsis 2/2 RLE cellulitis - s/p 1L IV bolus for hypotension - Continue IVF 75cc/hr - Continue vanco, unysan - Negative for DVT - Blood and urine cx pending - Discussed with ID 2. Hypotension - Continue maintenance IVF - Monitor bp 3. Hyponatremia - Improving - Continue fluids 4. DVT - Heparin sq Visit type - Emergency Visit Emergency Visit: Yes ED Registration Date: 07/23/17 Care time: The patient presented to the Emergency Department on the above date and was hospitalized for further evaluation of their emergent condition. - New Patient This patient is new to me today: Yes Date on this admission: 07/24/17 - Critical Care Critical Care patient: No
--- NOTE | 2017-07-24 12:41 | CONS ---
DATE OF CONSULTATION: DATE OF DICTATION: 07/24/2017 HISTORY: The patient is a 36-year-old male with a history of morbid obesity, prior history of cellulitis of the right lower extremity now readmitted with recurrent right lower extremity cellulitis. He reports a 1- to 2-day history of increasing right lower extremity pain, erythema, and warmth. Pain was worsened with ambulation. He noted erythema extending from the ankle to the calf. The patient presented to the emergency room where he was diagnosed with cellulitis of the right lower extremity. He was empirically treated with vancomycin and Unasyn. His course has been complicated by high-grade fever. The patient denies any traumatic injury to his right lower extremity. No insect or animal bites or scratches. He has had a history of recurrent right lower extremity cellulitis. The patient was hospitalized in April 2016 with right leg cellulitis and fever. He also had a history of right lower extremity cellulitis, which was complicated by group B streptococcus bacteremia in 2009. PAST MEDICAL HISTORY: Positive for morbid obesity. ALLERGIES: No known allergies. MEDICATIONS: Include Tylenol, vancomycin, Unasyn, oxycodone. SOCIAL HISTORY: Resides at home. Nonsmoker, nondrinker. SYSTEMS REVIEW: Neurologic: No loss of consciousness, seizure activity, focal weakness. Cardiac: Negative chest pain or palpitations. Respiratory: Negative cough or sputum production. Gastrointestinal: Negative vomiting or diarrhea. Genitourinary: Negative for urinary tract infection. LABORATORY DATA: White blood cell count 15.4, hematocrit 36.3, platelet count 310, BUN 8, creatinine 1.1. Urinalysis 0-2 white cells. Cultures pending. PHYSICAL EXAMINATION: General: He is awake, alert, morbidly obese. Vital Signs: Temperature 101.3, blood pressure 88/35, pulse 110 and regular, respirations 18 per minute. HEENT: Sclerae anicteric. Heart: Sounds S1, S2. Lungs: Clear. Abdomen: Obese, soft, nontender. Extremities: Bilateral lower extremity edema. There is erythema present on the medial aspect of the distal right lower extremity from above the ankle to the midcalf. The area is warm and tender to touch. No crepitus or fluctuance. No lymphangitic streaking. IMPRESSION: 1. Recurrent right lower extremity cellulitis. 2. High-grade fever, leukocytosis, rule out sepsis. 3. Morbid obesity. PLAN: Pending sepsis workup empiric antibiotic coverage with vancomycin and Unasyn. Elevation. Analgesics. We will follow. Thank you for the kind referral. CAMERON BOOTHE M.D. [id number]
[2017-07-24] MEDS: SODIUM CHLORIDE 1,000 ML IV SCH (12:56)
[2017-07-24] MEDS ORDERED: PT OWN MED DRAWER 7, Y5N ONE ×2 (14:33→21:04)
[2017-07-24] MEDS: AMPICILLIN NA/SULBACTAM NA 3 GM in SODIUM CHLORIDE 100 ML IVPB SCH ×2 (14:41→21:10)
[2017-07-24] MEDS ORDERED: REFRIGERATED ANITBIOTICS ONE (21:15)
[2017-07-24] MEDS ORDERED: VANCOMYCIN 1,500 MG in DEXTROSE 5%-WATER - 500 ML IVPB SCH (22:00)
[2017-07-25] MEDS ORDERED: PT OWN MED DRAWER 7, Y5N ONE (02:19)
[2017-07-25] MEDS: AMPICILLIN NA/SULBACTAM NA 3 GM in SODIUM CHLORIDE 100 ML IVPB SCH ×4 (03:03→21:30)
[2017-07-25] MEDS: HEPARIN NA (PORCINE) 5,000 UNITS/ML 1ML VIAL SQ SCH ×3 (06:24→21:31)
[2017-07-25 07:55] LABS: HEMATOCRIT 37.7 % (35.4-49); HEMOGLOBIN 12.9 GM/dl (11.7-16.9); MCH 28.7 pg (25.7-33.7); MCHC 34.1 g/dl (32.0-35.9); MEAN CELL VOLUME 84.1 fl (80-96); MEAN PLT VOLUME 7.5 fl (7.5-11.1); PLATELET COUNT 264 K/MM3 (134-434); RBC 4.48 M/mm3 (4.00-5.60); RDW 14.5 % (11.9-15.9); WHITE BLOOD COUNT 10.8 K/mm3 (4.0-10.8)
[2017-07-25 08:29] LABS: ANION GAP 6 (8-16); BLOOD UREA NITROGEN 7 mg/dl (7-18); CALCIUM 8.1 mg/dl (8.4-10.2); CHLORIDE 105 mmol/L (98-107); CO2 24 mmol/L (22-28); CREATININE 1.1 mg/dl (0.6-1.3); GLUCOSE,RANDOM 88 mg/dl (74-106); POTASSIUM 3.8 mmol/L (3.5-5.1); SODIUM 135 mmol/L (136-145)
--- NOTE | 2017-07-25 08:46 | PN ---
Progress Note, Physician History of Present Illness: C/O R LE pain Low grade temp Tolerating antibiotics - Current Medication List Current Medications: Active Medications Acetaminophen (Tylenol -) 650 mg PO Q6H PRN PRN Reason: FEVER Last Admin: 07/24/17 19:57 Dose: 650 mg Heparin Sodium (Porcine) (Heparin -) 5,000 unit SQ TID MC Last Admin: 07/25/17 06:24 Dose: 5,000 unit Vancomycin HCl 1,500 mg/ (Dextrose) 500 mls @ 250 mls/hr IVPB Q12H MC; Protocol Last Admin: 07/24/17 22:00 Dose: 250 mls/hr Ampicillin Sodium/Sulbactam (Sodium 3 gm/ Sodium Chloride) 100 mls @ 200 mls/ hr IVPB Q6H-IV MC Last Admin: 07/25/17 03:03 Dose: 200 mls/hr Sodium Chloride (Normal Saline -) 1,000 mls @ 75 mls/hr IV ASDIR MC Last Admin: 07/24/17 12:56 Dose: 75 mls/hr Oxycodone HCl (Roxicodone -) 5 mg PO Q6H PRN PRN Reason: PAIN LEVEL 1-5 Last Admin: 07/24/17 19:57 Dose: 5 mg - Objective Vital Signs: Vital Signs Temperature 99.3 F 07/25/17 06:00 Pulse Rate 100 H 07/25/17 06:00 Respiratory Rate 20 07/25/17 06:00 Blood Pressure 106/57 07/25/17 06:00 O2 Sat by Pulse Oximetry (%) 98 07/25/17 06:00 Constitutional: Yes: No Distress, Obese Eyes: Yes: Conjunctiva Clear Cardiovascular: Yes: Regular Rate and Rhythm, S1, S2 Respiratory: Yes: CTA Bilaterally Gastrointestinal: Yes: Normal Bowel Sounds, Soft, Abdomen, Obese. No: Tenderness Extremities: Yes: Other (R LE erythema/ warmth/ tenderness) Labs: CBC, BMP 07/25/17 07:20 07/25/17 07:20 INR, PTT INR 1.32 (0.82-1.09) H 07/23/17 17:35 Assessment/Plan Recurrent R LE cellulitis R/O sepsis secondary to cellulitis Morbid obesity Continue empiric vancomycin/ unasyn Elevation
[2017-07-25] MEDS ORDERED: REFRIGERATED ANITBIOTICS ONE ×3 (09:45→23:47)
[2017-07-25] MEDS: VANCOMYCIN 1,500 MG in SODIUM CHLORIDE 500 ML IVPB SCH ×2 (10:15→23:47)
--- NOTE | 2017-07-25 10:44 | PN ---
Physical Exam: SUBJECTIVE: Patient seen and examined at the bedside. In no acute distress, comfortable. OBJECTIVE: Vital Signs Period Temp Pulse Resp BP Sys/Post Pulse Ox Last 24 Hr 99.0 F-101.1 F 100-110 18-20 106-120/57-68 98 GENERAL: The patient is awake, alert, and fully oriented, in no acute distress. HEAD: Normal with no signs of trauma. EYES: PERRL, extraocular movements intact, sclera anicteric, conjunctiva clear. No ptosis. ENT: Ears normal, nares patent, oropharynx clear without exudates, moist mucous membranes. NECK: Trachea midline, full range of motion, supple. LUNGS: Breath sounds equal, clear to auscultation bilaterally HEART: Regular rate and rhythm, S1, S2 without murmur, rub or gallop. ABDOMEN: Soft, nontender, nondistended, normoactive bowel sounds, no guarding, no rebound, no hepatosplenomegaly, no masses. EXTREMITIES:no edema. NEUROLOGICAL: Cranial nerves II through XII grossly intact. Normal speech, gait not observed. PSYCH: Normal mood, normal affect. SKIN: Warm, dry, normal turgor, no rashes or lesions noted Laboratory Results - last 24 hr 07/24/17 07/24/17 07/25/17 08:55 08:55 07:20 WBC 15.4 H 10.8 RBC 4.37 4.48 Hgb 12.9 12.9 Hct 36.3 37.7 MCV 83.0 84.1 MCH 29.4 28.7 MCHC 35.4 34.1 RDW 14.0 14.5 Plt Count 310 D 264 MPV 7.6 7.5 Neutrophils % 88.9 H D Lymphocytes % 6.0 L D Monocytes % 5.0 Eosinophils % 0.0 D Basophils % 0.1 Sodium Potassium Chloride Carbon Dioxide Anion Gap BUN Creatinine Random Glucose Calcium Vancomycin Pre-Dose 1.645 L* 07/25/17 07:20 WBC RBC Hgb Hct MCV MCH MCHC RDW Plt Count MPV Neutrophils % Lymphocytes % Monocytes % Eosinophils % Basophils % Sodium 135 L Potassium 3.8 Chloride 105 Carbon Dioxide 24 Anion Gap 6 L BUN 7 Creatinine 1.1 Random Glucose 88 D Calcium 8.1 L Vancomycin Pre-Dose Active Medications Generic Name Dose Route Start Last Admin Trade Name Freq PRN Reason Stop Dose Admin Acetaminophen 650 mg 07/24/17 01:40 07/24/17 19:57 Tylenol - PO 650 mg Q6H PRN Administration FEVER Heparin Sodium (Porcine) 5,000 unit 07/23/17 22:00 07/25/17 06:24 Heparin - SQ 5,000 unit TID MC Administration Ampicillin Sodium/Sulbactam 100 mls @ 200 mls/hr 07/24/17 15:00 07/25/17 09: 56 Sodium 3 gm/ Sodium Chloride IVPB 200 mls/hr Q6H-IV MC Administration Sodium Chloride 1,000 mls @ 75 mls/hr 07/24/17 12:15 07/24/17 12:56 Normal Saline - IV 75 mls/hr ASDIR MC Administration Vancomycin HCl 1,500 mg/ 500 mls @ 250 mls/hr 07/25/17 10:11 Sodium Chloride IVPB Q12H MC Protocol Oxycodone HCl 5 mg 07/24/17 10:29 07/24/17 19:57 Roxicodone - PO 5 mg Q6H PRN Administration PAIN LEVEL 1-5 ASSESSMENT/PLAN: Patient is a 36 year old male with severe morbid obesity admitted for acute on chronic RLE cellulitis. ID: Severe sepsis 2/2 RLE cellulitis On Vanco and Unasyn No DVT as per vascular report Pain controlled RLE cellulitis acute on chronic Card Hypotension, likely secondary to sepsis on IVF Monitor BP Renal: Hyponatremia, resolving On IVF DVT: Heparin GI: deferred NS @ 75cc/hr Visit type - Emergency Visit Emergency Visit: Yes ED Registration Date: 07/23/17 Care time: The patient presented to the Emergency Department on the above date and was hospitalized for further evaluation of their emergent condition. - New Patient This patient is new to me today: Yes Date on this admission: 07/25/17 - Critical Care Critical Care patient: No - Discharge Referral Referred to [facility] Med P.C.: No
[2017-07-25] MEDS: SODIUM CHLORIDE 1,000 ML IV SCH (13:57)
[2017-07-26] MEDS: AMPICILLIN NA/SULBACTAM NA 3 GM in SODIUM CHLORIDE 100 ML IVPB SCH ×4 (03:37→20:39)
[2017-07-26] MEDS: ACETAMINOPHEN 325 MG TABLET (FP) PO PRN ×2 (05:37→19:45)
[2017-07-26] MEDS: HEPARIN NA (PORCINE) 5,000 UNITS/ML 1ML VIAL SQ SCH ×3 (05:37→21:11)
[2017-07-26] MEDS: oxyCODONE HCL 5 MG TABLET PO PRN ×3 (05:38→19:45)
[2017-07-26 09:31] LABS: BLOOD UREA NITROGEN 7 mg/dl (7-18); CREATININE 0.9 mg/dl (0.6-1.3); GLUCOSE,RANDOM 79 mg/dl (74-106); SODIUM 136 mmol/L (136-145)
[2017-07-26 09:32] LABS: ALBUMIN 2.8 g/dl (3.5-5.0); ALK PHOS 68 U/L (32-92); ANION GAP 8 (8-16); CHLORIDE 105 mmol/L (98-107); CO2 23 mmol/L (22-28); POTASSIUM 3.7 mmol/L (3.5-5.1); SGOT/AST 16 U/L (10-42); SGPT/ALT 24 U/L (10-40); TOT PROT 6.3 g/dl (6.4-8.3)
[2017-07-26] MEDS ORDERED: PT OWN MED DRAWER 7, Y5N ONE (09:37)
[2017-07-26 09:39] LABS: BILIRUBIN,TOTAL < 0.5 mg/dl (0.2-1.0)
[2017-07-26 09:42] LABS: BASO % 0.5 % (0-2.0); EOS % 2.2 % (0-4.5); HEMATOCRIT 36.5 % (35.4-49); HEMOGLOBIN 12.4 GM/dl (11.7-16.9); LYMPH % 28.4 % (8-40); MCH 28.5 pg (25.7-33.7); MCHC 33.9 g/dl (32.0-35.9); MEAN CELL VOLUME 84.1 fl (80-96); MEAN PLT VOLUME 7.7 fl (7.5-11.1); MONO % 9.9 % (3.8-10.2); PLATELET COUNT 339 K/MM3 (134-434); RBC 4.34 M/mm3 (4.00-5.60); RDW 14.2 % (11.9-15.9); WHITE BLOOD COUNT 8.1 K/mm3 (4.0-10.8)
--- NOTE | 2017-07-26 10:29 | PN ---
Physical Exam: SUBJECTIVE: Patient seen and examined. Still c/o RLE pain with ambulation, denies DANIELS, dizziness, cp, sob,palpitations , abdominal pain, N/V/D or urinary symptoms. OBJECTIVE: Vital Signs Period Temp Pulse Resp BP Sys/Post Pulse Ox Last 24 Hr 98.1 F-99.6 F 85-101 16-20 114-126/66-75 97-99 GENERAL: The patient is awake, alert, and fully oriented, in no acute distress. HEAD: Normal with no signs of trauma. EYES: PERRL, extraocular movements intact, sclera anicteric, conjunctiva clear. No ptosis. ENT: Ears normal, nares patent, oropharynx clear without exudates, moist mucous membranes. NECK: Trachea midline, full range of motion, supple. LUNGS: Breath sounds equal, clear to auscultation bilaterally, no wheezes, no crackles, no accessory muscle use. HEART: Regular rate and rhythm, S1, S2 without murmur, rub or gallop. ABDOMEN: Soft, non-tender, non-distended, normoactive bowel sounds, no guarding , no rebound, no hepatosplenomegaly, no masses, obese EXTREMITIES: 2+ pulses, warm, well-perfused, RLE with mild redness and swelling , + tenderness,pulse present, warm to touch NEUROLOGICAL: Cranial nerves II through XII grossly intact. Normal speech, gait not observed. PSYCH: Normal mood, normal affect. SKIN: Warm, dry, normal turgor, no rashes or lesions noted, RLE cellulitis Laboratory Results - last 24 hr 07/26/17 07/26/17 06:45 07:00 WBC 8.1 RBC 4.34 Hgb 12.4 Hct 36.5 MCV 84.1 MCH 28.5 MCHC 33.9 RDW 14.2 Plt Count 339 D MPV 7.7 Neutrophils % 59.0 D Lymphocytes % 28.4 D Monocytes % 9.9 D Eosinophils % 2.2 D Basophils % 0.5 D Sodium 136 Potassium 3.7 Chloride 105 Carbon Dioxide 23 Anion Gap 8 BUN 7 Creatinine 0.9 Creat Clearance w eGFR > 60 Random Glucose 79 Calcium 8.0 L Magnesium 2.0 Total Bilirubin < 0.5 AST 16 ALT 24 D Alkaline Phosphatase 68 Total Protein 6.3 L Albumin 2.8 L D Active Medications Generic Name Dose Route Start Last Admin Trade Name Israq PRN Reason Stop Dose Admin Acetaminophen 650 mg 07/24/17 01:40 07/26/17 05:37 Tylenol - PO 650 mg Q6H PRN Administration FEVER Heparin Sodium (Porcine) 5,000 unit 07/23/17 22:00 07/26/17 05:37 Heparin - SQ 5,000 unit TID MC Administration Ampicillin Sodium/Sulbactam 100 mls @ 200 mls/hr 07/24/17 15:00 07/26/17 03: 37 Sodium 3 gm/ Sodium Chloride IVPB 200 mls/hr Q6H-IV MC Administration Sodium Chloride 1,000 mls @ 75 mls/hr 07/24/17 12:15 07/25/17 13:57 Normal Saline - IV 75 mls/hr ASDIR MC Administration Vancomycin HCl 1,500 mg/ 500 mls @ 250 mls/hr 07/25/17 10:11 07/25/17 23:47 Sodium Chloride IVPB 250 mls/hr Q12H MC Administration Protocol Oxycodone HCl 5 mg 07/24/17 10:29 07/26/17 05:38 Roxicodone - PO 5 mg Q6H PRN Administration PAIN LEVEL 1-5 Microbiology 07/23/17 17:35 Blood - Peripheral Venous Blood Culture - Preliminary NO GROWTH OBTAINED AFTER 48 HOURS, INCUBATION TO CONTINUE FOR 3 DAYS. 07/23/17 17:35 Blood - Peripheral Venous Blood Culture - Preliminary NO GROWTH OBTAINED AFTER 48 HOURS, INCUBATION TO CONTINUE FOR 3 DAYS. 07/23/17 17:35 Urine - Urine Clean Catch Urine Culture - Final ASSESSMENT/PLAN: Patient is a 36 year old male with severe morbid obesity, hx of RLE celllulitis and eczema, admitted for acute on chronic RLE cellulitis. ID: Severe sepsis 2/2 RLE cellulitis- improving will cont on Vanco and Unasyn No DVT as per vascular report Pain controlled RLE cellulitis acute on chronic BC preliminary negative afebrile with no leukocytosis Card Hypotension, likely secondary to sepsis- resolved,BP stable s/p IVF Monitor BP closely Renal: *Hyponatremia- resolved - s/p IVF * Eczema - started on Triamcinolone DVT: Heparin Visit type - Emergency Visit Emergency Visit: Yes ED Registration Date: 07/23/17 Care time: The patient presented to the Emergency Department on the above date and was hospitalized for further evaluation of their emergent condition. - New Patient This patient is new to me today: Yes Date on this admission: 07/26/17 - Critical Care Critical Care patient: No
[2017-07-26] MEDS: VANCOMYCIN 1,500 MG in SODIUM CHLORIDE 500 ML IVPB SCH ×2 (11:52→21:45)
[2017-07-26] MEDS: TRIAMCINOLONE ACET 0.1% CREAM 15 GM TUBE TP SCH (11:54)
--- NOTE | 2017-07-26 12:19 | PN ---
Progress Note, Physician History of Present Illness: C/O R LE pain, esprcially when weight bearing Temps down Afebrile WBC improved WNL BC (-) Tolerating antibiotics - Current Medication List Current Medications: Active Medications Acetaminophen (Tylenol -) 650 mg PO Q6H PRN PRN Reason: FEVER Last Admin: 07/26/17 05:37 Dose: 650 mg Heparin Sodium (Porcine) (Heparin -) 5,000 unit SQ TID MC Last Admin: 07/26/17 05:37 Dose: 5,000 unit Ampicillin Sodium/Sulbactam (Sodium 3 gm/ Sodium Chloride) 100 mls @ 200 mls/ hr IVPB Q6H-IV MC Last Admin: 07/26/17 09:51 Dose: 200 mls/hr Vancomycin HCl 1,500 mg/ (Sodium Chloride) 500 mls @ 250 mls/hr IVPB Q12H MC; Protocol Last Admin: 07/26/17 11:52 Dose: 250 mls/hr Oxycodone HCl (Roxicodone -) 5 mg PO Q6H PRN PRN Reason: PAIN LEVEL 1-5 Last Admin: 07/26/17 11:55 Dose: 5 mg Triamcinolone Acetonide (Aristocort 0.1% Cream -) 1 applic TP DAILY MC Last Admin: 07/26/17 11:54 Dose: 1 applic - Objective Vital Signs: Vital Signs Temperature 98.1 F 07/26/17 06:00 Pulse Rate 85 07/26/17 06:00 Respiratory Rate 20 07/26/17 06:00 Blood Pressure 126/75 07/26/17 06:00 O2 Sat by Pulse Oximetry (%) 99 07/26/17 06:28 Constitutional: Yes: No Distress, Obese Eyes: Yes: Conjunctiva Clear Cardiovascular: Yes: Regular Rate and Rhythm, S1, S2 Respiratory: Yes: CTA Bilaterally Gastrointestinal: Yes: Normal Bowel Sounds, Soft. No: Tenderness Extremities: Yes: Other (decreased erythema/ warmth R LE) Labs: CBC, BMP 07/26/17 06:45 07/26/17 07:00 INR, PTT INR 1.32 (0.82-1.09) H 07/23/17 17:35 Assessment/Plan Recurrent R LE cellulitis R/O sepsis secondary to cellulitis Morbid obesity Continue empiric vancomycin/ unasyn Elevation
[2017-07-26] MEDS ORDERED: REFRIGERATED ANITBIOTICS ONE (21:17)
[2017-07-27] MEDS: AMPICILLIN NA/SULBACTAM NA 3 GM in SODIUM CHLORIDE 100 ML IVPB SCH ×4 (02:11→21:30)
[2017-07-27] MEDS: ACETAMINOPHEN 325 MG TABLET (FP) PO PRN (05:41)
[2017-07-27] MEDS: oxyCODONE HCL 5 MG TABLET PO PRN (05:41)
[2017-07-27] MEDS: HEPARIN NA (PORCINE) 5,000 UNITS/ML 1ML VIAL SQ SCH ×3 (05:42→21:30)
[2017-07-27] MEDS ORDERED: PT OWN MED DRAWER 7, Y5N ONE ×3 (09:34→21:15)
[2017-07-27] MEDS ORDERED: REFRIGERATED ANITBIOTICS ONE ×2 (09:35→21:16)
[2017-07-27] MEDS: VANCOMYCIN 1,500 MG in SODIUM CHLORIDE 500 ML IVPB SCH ×2 (09:38→21:30)
[2017-07-27] MEDS: TRIAMCINOLONE ACET 0.1% CREAM 15 GM TUBE TP SCH (09:38)
--- NOTE | 2017-07-27 10:12 | PN ---
Physical Exam: SUBJECTIVE: Patient seen and examined, the patient reports pain to the right lower extremity upon ambulating reports headache, describes the pain as a pressure sensation to the top of head, patient denies any blurred vision. Patient reports pain is similar to headaches that he has experienced in the past OBJECTIVE:patient is a 36-year-old morbidly obese male,with a past medical history of cellulitis. Patient was admitted from the emergency department for sepsis secondary to right lower extremity cellulitis Vital Signs Period Temp Pulse Resp BP Sys/Post Pulse Ox Last 24 Hr 98.1 F-98.4 F 82-91 16-19 112-118/55-71 95-97 GENERAL: The patient is awake, alert, and fully oriented, in no acute distress. HEAD: Normal with no signs of trauma. EYES: PERRL, extraocular movements intact, sclera anicteric, conjunctiva clear. No ptosis. ENT: Ears normal, nares patent, oropharynx clear without exudates, moist mucous membranes. NECK: Trachea midline, full range of motion, supple. LUNGS: Breath sounds equal, clear to auscultation bilaterally, no wheezes, no crackles, no accessory muscle use. HEART: Regular rate and rhythm, S1, S2 without murmur, rub or gallop. ABDOMEN: Soft, nontender, nondistended, normoactive bowel sounds, no guarding, no rebound, no hepatosplenomegaly, no masses. EXTREMITIES: 2+ pulses, warm, well-perfused, no edema. RIGHT LOWER EXTREMITY: erythema not extending past markings, trace pretibial edema noted, less than 3 second capillary refill, + 3 pedal pulse NEUROLOGICAL: Cranial nerves II through XII grossly intact. Normal speech, gait not observed. PSYCH: Normal mood, normal affect. SKIN: Warm, dry, normal turgor, no rashes or lesions noted Laboratory Results - last 24 hr 07/26/17 21:00 Vancomycin Pre-Dose 8.136 D Active Medications Generic Name Dose Route Start Last Admin Trade Name Freq PRN Reason Stop Dose Admin Acetaminophen 650 mg 07/24/17 01:40 07/27/17 05:41 Tylenol - PO 650 mg Q6H PRN Administration FEVER Heparin Sodium (Porcine) 5,000 unit 07/23/17 22:00 07/27/17 05:42 Heparin - SQ 5,000 unit TID MC Administration Ampicillin Sodium/Sulbactam 100 mls @ 200 mls/hr 07/24/17 15:00 07/27/17 09: 38 Sodium 3 gm/ Sodium Chloride IVPB 200 mls/hr Q6H-IV MC Administration Vancomycin HCl 1,500 mg/ 500 mls @ 250 mls/hr 07/25/17 10:11 07/27/17 09:38 Sodium Chloride IVPB 250 mls/hr Q12H MC Administration Protocol Oxycodone HCl 5 mg 07/24/17 10:29 07/27/17 05:41 Roxicodone - PO 5 mg Q6H PRN Administration PAIN LEVEL 1-5 Triamcinolone Acetonide 1 applic 07/26/17 10:45 07/27/17 09:38 Aristocort 0.1% Cream - TP 1 applic DAILY MC Administration Microbiology 07/23/17 17:35 Blood - Peripheral Venous Blood Culture - Preliminary NO GROWTH OBTAINED AFTER 72 HOURS, INCUBATION TO CONTINUE FOR 2 DAYS. 07/23/17 17:35 Blood - Peripheral Venous Blood Culture - Preliminary NO GROWTH OBTAINED AFTER 72 HOURS, INCUBATION TO CONTINUE FOR 2 DAYS. 07/23/17 17:35 Urine - Urine Clean Catch Urine Culture - Final ASSESSMENT/PLAN: 1) ID: Severe sepsis s right lower extremity cellulitis - improving, cont on Vanco (07/25 -) and Unasyn (07/24 -) continue as per ID recommendation - no leukocytosis patient afebrile blood cultures negative to date - Infectious disease Dr. Langford consulted and following 2) Card Hypotension - resolves, likely secondary to sepsis 3) neurology headache - patient reports a history of headaches in the past, pain is similar to headaches from the past, Toradol and Reglan and magnesium ordered, close monitoring F/E/N hyponatremia resolved DASH diet DVT: Heparin Visit type - Emergency Visit Emergency Visit: Yes ED Registration Date: 07/23/17 Care time: The patient presented to the Emergency Department on the above date and was hospitalized for further evaluation of their emergent condition. - New Patient This patient is new to me today: No - Critical Care Critical Care patient: No - Discharge Referral Referred to [facility] Med P.C.: No
[2017-07-27] MEDS ORDERED: KETOROLAC TROMETHAMINE 30 MG/1 ML VIAL IVPUSH ONE (14:15)
[2017-07-27] MEDS ORDERED: MAGNESIUM 1GM/D5W 100ML - 100 ML IVPB IVPB ONE (14:30)
[2017-07-27] MEDS ORDERED: METOCLOPRAMIDE HCL INJECTION 10 MG/2 ML VIAL IVPUSH ONE (14:30)
[2017-07-28] MEDS: AMPICILLIN NA/SULBACTAM NA 3 GM in SODIUM CHLORIDE 100 ML IVPB SCH ×2 (03:00→09:48)
[2017-07-28 06:40] VITALS: TEMP 98
[2017-07-28] MEDS: HEPARIN NA (PORCINE) 5,000 UNITS/ML 1ML VIAL SQ SCH (07:10)
--- NOTE | 2017-07-28 08:18 | PN ---
Physical Exam: SUBJECTIVE: Patient seen and examined OBJECTIVE: Vital Signs Period Temp Pulse Resp BP Sys/Post Pulse Ox Last 24 Hr 98.0 F-98.8 F 84-93 16-20 104-154/55-92 97-99 GENERAL: The patient is awake, alert, and fully oriented, in no acute distress. HEAD: Normal with no signs of trauma. EYES: PERRL, extraocular movements intact, sclera anicteric, conjunctiva clear. No ptosis. ENT: Ears normal, nares patent, oropharynx clear without exudates, moist mucous membranes. NECK: Trachea midline, full range of motion, supple. LUNGS: Breath sounds equal, clear to auscultation bilaterally, no wheezes, no crackles, no accessory muscle use. HEART: Regular rate and rhythm, S1, S2 without murmur, rub or gallop. ABDOMEN: Soft, nontender, nondistended, normoactive bowel sounds, no guarding, no rebound, no hepatosplenomegaly, no masses. EXTREMITIES: 2+ pulses, warm, well-perfused, no edema. NEUROLOGICAL: Cranial nerves II through XII grossly intact. Normal speech, gait not observed. PSYCH: Normal mood, normal affect. SKIN: Warm, dry, normal turgor, no rashes or lesions noted Active Medications Generic Name Dose Route Start Last Admin Trade Name Israq PRN Reason Stop Dose Admin Acetaminophen 650 mg 07/24/17 01:40 07/27/17 05:41 Tylenol - PO 650 mg Q6H PRN Administration FEVER Heparin Sodium (Porcine) 5,000 unit 07/23/17 22:00 07/28/17 07:10 Heparin - SQ 5,000 unit TID MC Administration Ampicillin Sodium/Sulbactam 100 mls @ 200 mls/hr 07/24/17 15:00 07/28/17 03: 00 Sodium 3 gm/ Sodium Chloride IVPB 200 mls/hr Q6H-IV MC Administration Vancomycin HCl 1,500 mg/ 500 mls @ 250 mls/hr 07/25/17 10:11 07/27/17 21:30 Sodium Chloride IVPB 250 mls/hr Q12H MC Administration Protocol Triamcinolone Acetonide 1 applic 07/26/17 10:45 07/27/17 09:38 Aristocort 0.1% Cream - TP 1 applic DAILY MC Administration ASSESSMENT/PLAN:
[2017-07-28 08:58] LABS: ANION GAP 6 (8-16); BLOOD UREA NITROGEN 9 mg/dl (7-18); CALCIUM 8.3 mg/dl (8.4-10.2); CHLORIDE 105 mmol/L (98-107); CO2 23 mmol/L (22-28); CREATININE 0.9 mg/dl (0.6-1.3); GLUCOSE,RANDOM 83 mg/dl (74-106); PHOSPHOROUS 3.9 mg/dl (2.5-4.6); POTASSIUM 4.1 mmol/L (3.5-5.1); SODIUM 134 mmol/L (136-145)
[2017-07-28 09:02] LABS: BASO % 0.4 % (0-2.0); EOS % 3.7 % (0-4.5); HEMATOCRIT 36.8 % (35.4-49); HEMOGLOBIN 12.4 GM/dl (11.7-16.9); LYMPH % 31.9 % (8-40); MCH 28.3 pg (25.7-33.7); MCHC 33.8 g/dl (32.0-35.9); MEAN CELL VOLUME 83.9 fl (80-96); MEAN PLT VOLUME 7.3 fl (7.5-11.1); MONO % 9.8 % (3.8-10.2); NEUT % 54.2 % (42.8-82.8); PLATELET COUNT 447 K/MM3 (134-434); RBC 4.39 M/mm3 (4.00-5.60); RDW 14.4 % (11.9-15.9); WHITE BLOOD COUNT 7.7 K/mm3 (4.0-10.8)
--- NOTE | 2017-07-28 09:42 | PN ---
Progress Note, Physician History of Present Illness: Reports less leg pain. Able to bear weight Temps down Afebrile WBC improved WNL BC (-) Tolerating antibiotics - Current Medication List Current Medications: Active Medications Acetaminophen (Tylenol -) 650 mg PO Q6H PRN PRN Reason: FEVER Last Admin: 07/27/17 05:41 Dose: 650 mg Heparin Sodium (Porcine) (Heparin -) 5,000 unit SQ TID MC Last Admin: 07/28/17 07:10 Dose: 5,000 unit Ampicillin Sodium/Sulbactam (Sodium 3 gm/ Sodium Chloride) 100 mls @ 200 mls/ hr IVPB Q6H-IV MC Last Admin: 07/28/17 03:00 Dose: 200 mls/hr Vancomycin HCl 1,500 mg/ (Sodium Chloride) 500 mls @ 250 mls/hr IVPB Q12H MC; Protocol Last Admin: 07/27/17 21:30 Dose: 250 mls/hr Triamcinolone Acetonide (Aristocort 0.1% Cream -) 1 applic TP DAILY MC Last Admin: 07/27/17 09:38 Dose: 1 applic - Objective Vital Signs: Vital Signs Temperature 98.0 F 07/28/17 06:39 Pulse Rate 84 07/28/17 06:39 Respiratory Rate 20 07/28/17 06:39 Blood Pressure 104/55 07/28/17 06:39 O2 Sat by Pulse Oximetry (%) 98 07/27/17 16:00 Constitutional: Yes: No Distress, Obese Cardiovascular: Yes: Regular Rate and Rhythm, S1, S2 Respiratory: Yes: CTA Bilaterally Gastrointestinal: Yes: Normal Bowel Sounds, Soft, Abdomen, Obese. No: Tenderness Edema: Yes Integumentary: Yes: Other (mild residual erythema/ warmth distal R LE. No tenderness.) Labs: CBC, BMP 07/28/17 08:16 07/28/17 08:16 INR, PTT INR 1.32 (0.82-1.09) H 07/23/17 17:35 Assessment/Plan Recurrent R LE cellulitis improved Morbid obesity Substitute Keflex 1gm po tid x 10d Elevation
[2017-07-28] MEDS ORDERED: REFRIGERATED ANITBIOTICS ONE (09:43)
[2017-07-28] MEDS ORDERED: PT OWN MED DRAWER 7, Y5N ONE (09:58)
[2017-07-28] MEDS ORDERED: TRIAMCINOLONE ACET 0.1% CREAM 80 GM TUBE TP SCH (10:00)
[2017-07-28] MEDS: VANCOMYCIN 1,500 MG in SODIUM CHLORIDE 500 ML IVPB SCH (10:58)
[2017-07-28 11:03] VITALS: BP 125/75; PULSE 80
--- NOTE | 2017-07-28 11:27 | DS ---
Physical Exam: SUBJECTIVE: Patient seen and examined, OBJECTIVE:This is a 36 y/o man with a PMHx of RLE Cellulitis, Severe Obesity. Who presents to the ED with pain, swelling, redness to his RLE x1 day. Patient reports warmth and streaking up the leg. Patient endorses fever, chills and shaking, lightheadedness, dyspnea. Patient denies recent outdoor exposure, animal or bug bites. Patient reports difficulty ambulating subsequently due to the pain. ER course was notable for: (1) Sepsis Criteria Met: T Max 103, P 122, WBC 16.8 with L shift (neutrophils 92 ) (2) Vancomycin and Ceftriaxone given (3) Vital Signs Period Temp Pulse Resp BP Sys/Post Pulse Ox Last 24 Hr 98.0 F-98.8 F 80-93 16-20 104-154/55-92 98-99 PHYSICAL EXAM GENERAL: The patient is awake, alert, and fully oriented, in no acute distress. HEAD: Normal with no signs of trauma. EYES: PERRL, extraocular movements intact, sclera anicteric, conjunctiva clear. ENT: Ears normal, nares patent, oropharynx clear without exudates, moist mucous membranes. NECK: Trachea midline, full range of motion, supple. LUNGS: Breath sounds equal, clear to auscultation bilaterally, no wheezes, no crackles, no accessory muscle use. HEART: Regular rate and rhythm, S1, S2 without murmur, rub or gallop. ABDOMEN: Soft, nontender, nondistended, normoactive bowel sounds, no guarding, no rebound, no hepatosplenomegaly, no masses. EXTREMITIES: 2+ pulses, warm, well-perfused, no edema. NEUROLOGICAL: Cranial nerves II through XII grossly intact. Normal speech, gait not observed. PSYCH: Normal mood, normal affect. SKIN: Warm, dry, normal turgor, no rashes or lesions noted. LABS Laboratory Results - last 24 hr 07/28/17 07/28/17 08:16 08:16 WBC 7.7 RBC 4.39 Hgb 12.4 Hct 36.8 MCV 83.9 MCH 28.3 MCHC 33.8 RDW 14.4 Plt Count 447 H D MPV 7.3 L Absolute Neuts (auto) 4.2 Neutrophils % 54.2 Lymphocytes % 31.9 Monocytes % 9.8 Eosinophils % 3.7 Basophils % 0.4 Sodium 134 L Potassium 4.1 Chloride 105 Carbon Dioxide 23 Anion Gap 6 L BUN 9 D Creatinine 0.9 Random Glucose 83 Calcium 8.3 L Phosphorus 3.9 Magnesium 2.0 Microbiology 07/23/17 17:35 Blood - Peripheral Venous Blood Culture - Preliminary NO GROWTH OBTAINED AFTER 96 HOURS, INCUBATION TO CONTINUE FOR 1 DAYS. 07/23/17 17:35 Blood - Peripheral Venous Blood Culture - Preliminary NO GROWTH OBTAINED AFTER 96 HOURS, INCUBATION TO CONTINUE FOR 1 DAYS. 07/23/17 17:35 Urine - Urine Clean Catch Urine Culture - Final HOSPITAL COURSE: evere sepsis secondary to right lower extremity cellulitis, improved, maria eugenia cont on Vanco (07/25 -) and Unasyn (07/24 -) continue as per ID recommendation - no leukocytosis patient afebrile blood cultures negative to date - Infectious disease Dr. Langford consulted and following 2) Card Hypotension - resolves, likely secondary to sepsis 3) neurology headache - patient reports a history of headaches in the past, pain is similar to headaches from the past, Toradol and Reglan and magnesium ordered, close monitoring Date of Admission:07/23/17 Date of Discharge: 07/28/17 Minutes to complete discharge: 45 Discharge Summary Reason For Visit: CELLULITIS OF R LOWER EXTREMITY Current Active Problems Cellulitis of right lower extremity (Acute) Hyponatremia (Acute) Condition: Improved - Instructions Diet, Activity, Other Instructions: continue keflex (antibiotic) as prescribed continue to elevate the leg as much as possible throughout today Please follow up here primary care physician within 2 weeks If any new or persistent symptoms develop please return to the emergency department Referrals: Khadar Law MD [Staff Physician] - 3 Weeks Disposition: HOME - Home Medications Comprehensive Discharge Medication List: Ambulatory Orders NK [No Known Home Medication] 07/23/17 - Discharge Referral Referred to [facility] No
== END 2017-07-28 14:36 | disposition home or self-care (01) | DRG 720 ==
LOC: FER 15:30 → FM/S 20:01 → OBSVTOIN 20:01
PROVIDERS: ADMIT Internal Medicine; ATTEND Nurse Practitioner Family
DX: A41.9 Sepsis, unspecified organism (principal); L03.115 Cellulitis of right lower limb; E66.01 Morbid (severe) obesity due to excess calories; Z68.43 Body mass index [BMI] 50.0-59.9, adult; E87.1 Hypo-osmolality and hyponatremia; I95.9 Hypotension, unspecified; D72.829 Elevated white blood cell count, unspecified; L30.9 Dermatitis, unspecified
CPT/HCPCS: 36415; 71046-TC-FY; 80048; 80053; 81003; 81015; 82803; 83605; 83735; 84100; 84484; 85025; 85027; 85610; 85730; 87040; 87086; 93005; 93971-TC; 97116-GP; 97161-GP; 99283-25; G0480; J0131; J1644; J7030

== ENCOUNTER 2018-02-11 00:29 | Emergency (ER) | payer BC, OTHER ==
[2018-02-11] MEDS ORDERED: IBUPROFEN 400 MG TABLET (FP) PO ONE ×2 (01:00→01:01)
--- NOTE | 2018-02-11 01:01 | PDOC ---
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 Patient states that he has been performing activities at home during which he needs to push himself off of the floor with his wrists over the last week. He has had persistent pain on extension of both wrists. He denies direct trauma/fall with impact to his upper extremities. No history of edema/erythema of wrist joints or fever. Also, unrelated to the wrist complaints, he impacted his right knee several days ago. Since then, he has noticed buckling of the knee joint intermittently. In the past few years, he had noted crepitus and mild pain in the right knee while climbing stairs. Past History - Past Medical History Allergies/Adverse Reactions: Allergies Allergy/AdvReac Type Severity Reaction Status Date / Time No Known Allergies Allergy Verified 02/11/18 00:30 Home Medications: Ambulatory Orders Naproxen Sodium [Anaprox Ds] 550 mg PO BID PRN #20 tablet 02/11/18 Anemia: No Asthma: No Cancer: No Cardiac Disorders: No CVA: No COPD: No CHF: No Dementia: No Diabetes: No GI Disorders: No Disorders: No HTN: No Hypercholesterolemia: No Liver Disease: No Seizures: No Thyroid Disease: No - Suicide/Smoking/Psychosocial Hx Smoking Status: No Smoking History: Never smoked Years of Tobacco Use: 0 Number of Cigarettes Smoked Daily: 0 Hx Alcohol Use: No Drug/Substance Use Hx: No Substance Use Type: None Hx Substance Use Treatment: No Review of Systems - Review of Systems Able to Perform ROS?: Yes Comments:: 12 point review of systems is negative except for what is noted in the history of present illness *Physical Exam - Physical Exam Comments: GENERAL: Morbidly obese, adult male in no acute distress HEAD: Normal with no signs of trauma. EYES: PERRLA, EOMI, sclera anicteric, conjunctiva clear. EXTREMITIES: Bilateral wrists-hyperextension reproduces pain bilaterally; no tenderness/edema/erythema/deformity of either wrist Remainder of the upper extremity exam is normal. Mild tenderness/crepitus on flexion of right knee; no deformity/ecchymosis/ligamentous instability Remainder of the extremity exam is normal. NEUROLOGICAL: Cranial nerves II through XII grossly intact. Normal speech. No focal neurological deficits. MUSCULOSKELETAL: Back non-tender to palpation, no CVA tenderness SKIN: Warm, Dry, normal turgor, no rashes or lesions noted. Progress Note - Progress Note Progress Note: X-ray of right knee performed. 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 Results discussed with the patient. Clinical presentation most consistent with bilateral wrist tendinitis and right knee contusion. Patient will be given Mauro wrap to the right knee as needed to be used during the day; wrap should be taken off at night. Prescription for Anaprox DS to be used up to twice a day ( with food). The patient will be given referral information for the [facility]. Meanwhile, patient should not work the next 2 days and should make arrangements to have follow-up in orthopedic office. *DC/Admit/Observation/Transfer Diagnosis at time of Disposition: Wrist tendonitis Left knee sprain Qualifiers: Encounter type: initial encounter Involved ligament of knee: medial collateral ligament Qualified Code(s): S83.412A - Sprain of medial collateral ligament of left knee, initial encounter - Discharge Dispostion Disposition: HOME Condition at time of disposition: Stable - Prescriptions Prescriptions: Naproxen Sodium [Anaprox Ds] 550 mg PO BID PRN #20 tablet PRN Reason: Pain - Referrals - Patient Instructions Printed Discharge Instructions: DI for Knee Sprain, DI for Tendinitis Additional Instructions: Avoid strenuous activity involving the wrists/knees for the next several days Mauro wrap to right knee during the day, remove at night Anaprox DS twice a day as needed; take with food Follow-up with Dr.Ilan benites (call office tomorrow) No work until February 13 - Post Discharge Activity Forms/Work/School Notes: Back to Work
[2018-02-11 01:50] VITALS: TEMP 98.1; BMI 52.0
[2018-02-11 01:59] VITALS: BP 135/86; PULSE 90
== END 2018-02-11 03:16 | disposition home or self-care (01) ==
LOC: FER 00:29
DX: S83.412A Sprain of medial collateral ligament of left knee, initial encounter (principal); X58.XXXA Exposure to other specified factors, initial encounter; Y93.89 Activity, other specified; Y92.89 Other specified places as the place of occurrence of the external cause; M77.9 Enthesopathy, unspecified; E66.01 Morbid (severe) obesity due to excess calories; Z68.43 Body mass index [BMI] 50.0-59.9, adult
CPT/HCPCS: 73560-TC-RT-FY; 99282-25